=== PATIENT | male | born 1960 | race Caucasian/White ===

== ENCOUNTER 2016-10-10 15:28 | Emergency (ER) | payer BC, OTHER, SELFPAY ==
[2016-10-10 16:47] LABS: BASO % 0.2 % (0.0-1.0); EOS # 0.1 K/mm3 (0.0-0.50); EOS % 1.3 % (0.0-3.0); LARGE UNSTAINED CELL # 0.1 K/mm3 (0.0-0.4); LARGE UNSTAINED CELL % 1.5 % (0.0-4.0); LYMPH # 1.1 K/mm3 (1.5-4.5); LYMPH % 9.3 % (24.0-44.0); MEAN CORPUSCULAR HEMOGLOBIN 33.1 pg (27.0-33.0); MEAN CORPUSCULAR HGB CONC 35.3 g/dl (32.0-36.5); MEAN CORPUSCULAR VOLUME 93.8 fl (80.0-96.0); MONO # 0.9 K/mm3 (0.0-0.8); NEUTROPHILS # 7.8 K/mm3 (1.8-7.7); NEUTROPHILS % 78.7 % (36.0-66.0); PLATELET COUNT, AUTOMATED 218 k/mm3 (150-450); RED CELL DISTRIBUTION WIDTH 12.3 % (11.5-14.5); WHITE BLOOD COUNT 9.9 K/mm3 (4.0-10.0)
[2016-10-10 17:16] LABS: ERYTHROCYTE SEDIMENTATION RATE 3 mm/hr (0-20)
[2016-10-10 17:25] LABS: ALBUMIN 3.7 GM/DL (3.2-5.2); ALKALINE PHOSPHATASE 90 U/L (45-117); ALT/SGPT 21 U/L (12-78); ANION GAP 13 MEQ/L (8-16); AST/SGOT 21 U/L (15-37); BLOOD UREA NITROGEN 11 MG/DL (7-18); CALCIUM LEVEL 9.1 MG/DL (8.5-10.1); CARBON DIOXIDE LEVEL 23 MEQ/L (21-32); CHLORIDE LEVEL 94 MEQ/L (98-107); CREATININE FOR GFR 0.73 MG/DL (0.70-1.30); GLOMERULAR FILTRATION RATE > 60.0 (>56); GLUCOSE, FASTING 118 MG/DL (70-105); POTASSIUM SERUM 4.1 MEQ/L (3.5-5.1); SODIUM LEVEL 130 MEQ/L (136-145); TOTAL PROTEIN 7.4 GM/DL (6.4-8.2)
[2016-10-10] MEDS ORDERED: ISOVUE-370 76% 100ML VIAL (Q9967) As Ordered ONE (17:45)
[2016-10-10] MEDS ORDERED: MORPHINE 4 MG/ML 1ML SYRINGE As Ordered ONE (17:50)
--- NOTE | 2016-10-10 18:31 | REP ---
Clinical: Trauma. Technique: Axial contrast enhanced images from the thoracic inlet to the upper abdomen using 100 ml Isovue 370 intravenous contrast material with coronal and sagittal re-formations. Findings: Left anterolateral 4th through 9th rib fractures are identified with minimal displacement at the fracture sites of the 5th through 7th ribs. The left hemithorax is well-aerated and without consolidation/contusion, effusion or pneumothorax. Incidental note is made of a 6 mm noncalcified subpleural nodule in the left lower lobe (image 57). Right lower lobe infiltrate may represent acute pneumonia and/or areas of pulmonary parenchymal contusion. No right pleural effusion or pneumothorax. The tracheobronchial tree is patent. The mediastinum demonstrates normal heart/pericardium and thoracic aorta. No adenopathy. Thoracic vertebral bodies are intact. Impression: 1. Left anterolateral fourth through ninth rib fractures. 2. Right lower lobe infiltrate compatible with acute pneumonia versus areas of parenchymal contusion. 3. 6 mm noncalcified left lower lobe sub pleural nodule. Consider initial follow-up examination and 3-6 months. Signed by Leonid Hilton MD 10/10/2016 06:22 P
[2016-10-10] MEDS ORDERED: AZITHROMYCIN 250 MG TAB As Ordered ONE (19:13)
[2016-10-10] MEDS ORDERED: NORCO, ANEXSIA 5/325MG TABLET (HYDROcodone/ACETAMINOPHEN) As Ordered ONE (19:13)
[2016-10-10] MEDS ORDERED: cefTRIAXone SOD 1 GM VIAL (J0696) As Ordered ONE (19:14)
[2016-10-10] MEDS ORDERED: NORCO 5/325MG TABLET (BULK) As Ordered ONE (20:49)
--- NOTE | 2016-10-10 21:04 | EDDOCDS ---
Physician Documentation [facility] Name: Jamir Boyd Age: 56 yrs Sex: Male : 1960 Arrival Date: 10/10/2016 Time: 15:28 Bed I4 / M4 Private MD: NO PRIMARY PHYSICIAN, . Disposition: 10/10/16 20:41 Discharged to Home/Self Care. Impression: Multiple fractures of ribs, left side - 4-9, Unspecified bacterial pneumonia - RLL, Hypo-osmolality and hyponatremia - beer potomania. - Condition is Stable. - Discharge Instructions: Hyponatremia, Pneumonia, Adult. - Prescriptions for Amoxicillin 500 mg Oral Capsule - take 1 capsule by ORAL route every 8 hours for 10 days; 30 tablet. [place] 5- 325 mg Oral Tablet - take 1 tablet by ORAL route every 6 hours As needed MDD: 4 tabs; 16 tablet. Zithromax 250 mg Oral Tablet - take 1 tablet by ORAL route once daily start tomorrow; 4 tablet. - Medication Reconciliation, Local Pharmacy Hours, Work Release Form - 5 day form. - Follow up: Emergency Department; When: 1 - 2 days; Reason: Recheck today's complaints, Continuance of care. [facility]: [facility]; When: Call to arrange an appointment; Reason: Recheck today's complaints, To establish care. - Problem is new. - Symptoms have improved. Historical: - Allergies: no known allergies; - Home Meds: 1. aspirin 81 mg Oral tab 1 tab once daily (Last dose: 10/10/2016) - PMHx: none; - PSHx: metal plate rt ankle; Tonsillectomy; - Social history: Smoking status: Patient uses tobacco products, current every day smoker. No barriers to communication noted, The patient speaks fluent [place], Speaks appropriately for age. - Family history: Not pertinent. - : The pt / caregiver states he / she is not on anticoagulants. Home medication list is obtained from the patient. - Exposure Risk Screening:: None identified. Vital Signs: 10/10 15:30 BP 164 / 97; Pulse 108; Resp 18 S; Temp 97.5(O); Pulse Ox 94% on R/A; Weight 73.48 kg / gr2 162 lbs (M); Height 5 ft. 7 in. (170.18 cm) (M); Pain 8/10; 21:00 BP 156 / 98 LA (man/); Pulse 74; Resp 18; Temp 98; Pulse Ox 94% on R/A; Pain 6/10; ld5 15:30 Body Mass Index 25.37 (73.48 kg, 170.18 cm) gr2 MDM: 15:53 IV Saline Lock ordered. btw 15:54 CBC with Diff Ordered. EDMS 15:54 Complete Comphrensive Metabolic Ordered. EDMS 15:54 ESR Ordered. EDMS 15:54 CRP Ordered. EDMS 15:54 CT Chest With Contrast Ordered. EDMS 16:02 Pulse ox continuous ordered. btw 16:42 Financial registration complete. gjb 16:49 NOTHING BY MOUTH+DIET ordered. EDMS 16:56 [place] [place] Payment Agreement was scanned into [employer] and attached to record. gjb 17:18 CBC with Diff Reviewed. btw 17:18 ESR Reviewed. btw 17:30 Complete Comphrensive Metabolic Reviewed. btw 17:30 CRP Reviewed. btw 17:50 morphine 4 mg IVP every 30 minutes; Document pain score/vitals after each dose (Hold if btw SBP < 90mmHg) x2 ordered. 18:30 Urine Dip ordered. ar2 18:36 NS 0.9% 1000 ml IV at bolus once ordered. ar2 19:09 cefTRIAXone 1 grams IVPB once over 30 mins; dilute in 50mL of NS or D5W ordered. ar2 19:09 azithromycin 500 mg PO once ordered. ar2 19:09 HYDROcodone-acetaminophen 5 mg-325 mg 1 tabs PO once ordered. ar2 19:09 Call Respiratory ordered. ar2 19:13 Call Respiratory complete. kb5 20:44 HYDROcodone-acetaminophen 4 pack- 5 mg-325 mg 1 packets PO Per package directions; ar2 Dispense with patient. 1 po q4h prn for pain ordered. Point of Care Testing: Urine Dip: 18:50 pH: 6; ; Specific [place]: 1.000; Ketones: Moderate; Glucose: Negative; Protein: Trace; cjh Leukocytes: Negative; Nitrite: Negative ; Blood: Non Hemolyzed Trace; Bilirubin: Small (+) ; Urobilinogen: Normal Ranges: Administered Medications: 17:52 Drug: morphine 4 mg [morphine 4 mg/mL intravenous cartridge (1 mL)] Route: IVP; Site: srm right antecubital; 18:59 Drug: NS 0.9% 1000 ml Route: IV; Rate: bolus; Site: right antecubital; [facility] 20:48 Follow up: IV Status: Completed infusion; IV Intake: 1000ml ld5 19:25 Drug: cefTRIAXone 1 grams [ceftriaxone 1 gram solution for injection] Route: IVPB; ld5 Infused Over: 30 mins; Site: right antecubital; 20:48 Follow up: IV Status: Completed infusion; IV Intake: 50ml ld5 19:25 Drug: azithromycin 500 mg [azithromycin 250 mg tablet (2 tabs)] Route: PO; ld5 19:25 Drug: HYDROcodone-acetaminophen 1 tabs [hydrocodone 5 mg-acetaminophen 325 mg tablet (1 ld5 tabs)] Route: PO; 21:02 Follow up: Response: Confirmed pt not driving.; No significant change. ld5 21:02 Drug: HYDROcodone-acetaminophen 4 pack- 1 packets [hydrocodone 5 mg-acetaminophen 325 ld5 mg tablet (1 tabs)] {Co-Signature: [facility] (Tiffany Manzanares RN).} Route: PO; 21:02 Follow up: Response: Med's dispensed home ld5 Signatures: Dispatcher Med[employer] EDMS Alberta Sanders RN RN srm Joanne, Reji, COMMANDING OFFICER [employer] COMMANDING OFFICER [employer] kb5 Shaji Naik PA-C PALayo ar2 Ishaan Saenz PA PA btw Dickerson, Laura, RN RN ld5 Laxmi Muniz Jane RN cj Tiffany Manzanares RN [facility] The chart was reviewed and I authenticate all verbal orders and agree with the evaluation and treatment provided.Corrections: (The following items were deleted from the chart) 18:48 18:24 OSMOLALITY, SERUM+LAB ordered. EDMS EDMS Attachments: 16:56 [facility] Payment Agreement david MTDD
--- NOTE | 2016-10-10 21:05 | EDDOCDS ---
Nurse's Notes [facility] Name: Jamir Boyd Age: 56 yrs Sex: Male : 1960 Arrival Date: 10/10/2016 Time: 15:28 Bed I4 / M4 Private MD: NO PRIMARY PHYSICIAN, . Diagnosis: Multiple fractures of ribs, left side-4-9;Unspecified bacterial pneumonia-RLL;Hypo-osmolality and hyponatremia-beer potomania Presentation: 10/10 15:35 Presenting complaint: Patient states: Fell on Thursday. Doesn't remember the fall. ld5 Presents today with increasing left upper back pain. Adult Sepsis Screening: The patient does not have new or worsening altered mentation. Patient's respiratory rate is less than 22. Systolic blood pressure is greater than 100. Patient has a qSOFA score of 0- Negative Sepsis Screen. Suicide/Homicide risk assessment- the patient denies having any suicidal and/or homicidal ideations and does not present with any other emotional, behavioral or mental health complaints. Status: Patient is not a repair service dispatcher or dependent. Transition of care: patient was not received from another setting of care. 15:35 Acuity: PARKER Level 4 ld5 15:35 Method Of Arrival: Walkin/Carried/Asstd ld5 Triage Assessment: 15:37 General: Appears in no apparent distress. Pain: Location: left scapular area and left ld5 subscapular area Pain currently is 10 out of 10 on a pain scale. HIV screening NA for this visit Offered previously. Neurological: Level of Consciousness is awake, alert. Respiratory: Reports cough that is productive. Musculoskeletal: Reports "rattling" to left ribs. Historical: - Allergies: no known allergies; - Home Meds: 1. aspirin 81 mg Oral tab 1 tab once daily (Last dose: 10/10/2016) - PMHx: none; - PSHx: metal plate rt ankle; Tonsillectomy; - Social history: Smoking status: Patient uses tobacco products, current every day smoker. No barriers to communication noted, The patient speaks fluent Vietnamese, Speaks appropriately for age. - Family history: Not pertinent. - : The pt / caregiver states he / she is not on anticoagulants. Home medication list is obtained from the patient. - Exposure Risk Screening:: None identified. Screenin:26 Screening information is obtained from the patient. Fall risk: No risks identified. ld5 Assistance ADL's: requires no assistance with activities of daily living. Abuse/DV Screen: The patient / caregiver reports he/she is: not in a situation that causes fear, pain or injury. Nutritional screening: No deficits noted. Advance Directives: There is no active DNR order. home support is adequate. Assessment: 16:40 General: Appears in no apparent distress, Behavior is appropriate for age, cooperative. srm Neurological: Level of Consciousness is awake, alert, Oriented to person, place, time, Moves all extremities. Full function Speech is normal, Facial symmetry appears normal. Respiratory: No deficits noted. GI: No deficits noted. 17:08 General: Appears in no apparent distress, comfortable, Behavior is appropriate for age, h cooperative, resting quietly on stretcher, no new problems or complaints, requesting a drink of water. Reviewed and explained NPO after discussing with provider. 17:57 General: Appears in no apparent distress, Behavior is appropriate for age, cooperative. srm Respiratory: Airway is patent Respiratory effort is even, unlabored, Breath sounds with crackles expiratory in left posterior lower lobe, right posterior middle lobe and right posterior lower lobe Breath sounds are diminished in right posterior middle lobe and right posterior lower lobe. Derm: No deficits noted. 19:25 General: Pt sitting up in bed. No apparent distress. Pt medicated per orders. Will ld5 continue to monitor. 20:04 General: IV medications complete, fluids continue infusing without difficulty, awaiting [facility] discharge. 20:19 General: Pt laying quietly in bed. No apparent distress. Bolus infusing. Will continue ld5 to monitor. 21:00 General: Pt reports increased pain when going from laying to sitting. Medications and ld5 incentive spirometer importance explained to pt and family member. Pain: Pain currently is 6 out of 10 on a pain scale. Neurological: Level of Consciousness is awake, alert. Respiratory: Airway is patent Respiratory effort is even, unlabored. Vital Signs: 15:30 BP 164 / 97; Pulse 108; Resp 18 S; Temp 97.5(O); Pulse Ox 94% on R/A; Weight 73.48 kg gr2 (M); Height 5 ft. 7 in. (170.18 cm) (M); Pain 8/10; 21:00 BP 156 / 98 LA (man/); Pulse 74; Resp 18; Temp 98; Pulse Ox 94% on R/A; Pain 6/10; ld5 15:30 Body Mass Index 25.37 (73.48 kg, 170.18 cm) gr2 Vitals: 15:30 Log In Time: October 10, 2016 at 15:30. gr2 ED Course: 15:29 Patient visited by Andrey Sanchez. gr2 15:29 Patient moved to Waiting gr2 15:30 NO PRIMARY PHYSICIAN, . is Private Physician. gr2 15:32 Patient visited by Andrey Sanchez. gr2 15:32 Patient moved to Pre RCE gr2 15:37 Triage Initiated ld5 15:39 Patient visited by Ava Perla RN. ld5 15:39 Ishaan Saenz PA is PHCP. btw 15:39 Mary Alston MD is Attending Physician. btw 15:39 Patient visited by Ishaan Saenz PA. btw 15:39 Patient moved to Triage 1 ld5 15:54 Patient moved to I6 / 28 jjr 15:55 Patient moved to I4 / M4 btw 16:10 Patient visited by Morteza Cummings PCA. jlf 16:15 Patient visited by Morteza Cummings PCA. jlf 16:40 The patient / caregiver is instructed regarding the plan of care and ED course. srm Accompanied by Significant Other, Patient has correct armband on for positive identification. Placed in gown. Bed in low position. 16:40 CRP Sent. srm 16:40 ESR Sent. srm 16:40 Complete Comphrensive Metabolic Sent. srm 16:40 CBC with Diff Sent. srm 16:40 Inserted saline lock: 20 gauge in right antecubital area and blood collected. srm 16:41 Patient visited by Alberta Sanders RN. srm 16:56 [place] [place] Agreement was scanned into [employer] and attached to record. gjb 17:37 Patient visited by Morteza Cummings PCA. jlf 17:58 Patient visited by Alberta Sanders RN. srm 18:02 PHCP role handed off by Ishaan Saenz PA ar2 18:02 Shaji Naik PA-C is PHCP. ar2 18:33 Patient visited by Morteza Cummings PCA. jlf 19:08 CT Chest With Contrast Returned. EDMS 19:26 No procedures done that require assistance. ld5 19:27 Patient visited by Ava Perla,BALDOMERO. ld5 20:10 Patient visited by Reji Rubio PCA. kb5 20:19 Patient visited by Ava Perla,BALDOMERO. ld5 20:40 [facility] is Referral Physician. ar2 21:00 Discontinued lock intact, bleeding controlled, pressure dressing applied, No ld5 redness/swelling at site. 21:03 Patient visited by Ava Perla RN. ld5 Administered Medications: 17:52 Drug: morphine 4 mg [morphine 4 mg/mL intravenous cartridge (1 mL)] Route: IVP; Site: srm right antecubital; 18:59 Drug: NS 0.9% 1000 ml Route: IV; Rate: bolus; Site: right antecubital; [facility] 20:48 Follow up: IV Status: Completed infusion; IV Intake: 1000ml ld5 19:25 Drug: cefTRIAXone 1 grams [ceftriaxone 1 gram solution for injection] Route: IVPB; ld5 Infused Over: 30 mins; Site: right antecubital; 20:48 Follow up: IV Status: Completed infusion; IV Intake: 50ml ld5 19:25 Drug: azithromycin 500 mg [azithromycin 250 mg tablet (2 tabs)] Route: PO; ld5 19:25 Drug: HYDROcodone-acetaminophen 1 tabs [hydrocodone 5 mg-acetaminophen 325 mg tablet (1 ld5 tabs)] Route: PO; 21:02 Follow up: Response: Confirmed pt not driving.; No significant change. ld5 21:02 Drug: HYDROcodone-acetaminophen 4 pack- 1 packets [hydrocodone 5 mg-acetaminophen 325 ld5 mg tablet (1 tabs)] {Co-Signature: [facility] (Tiffany Manzanares RN).} Route: PO; 21:02 Follow up: Response: Med's dispensed home ld5 Point of Care Testing: Urine Dip: 18:50 pH: 6; ; Specific [place]: 1.000; Ketones: Moderate; Glucose: Negative; Protein: Trace; [facility] Leukocytes: Negative; Nitrite: Negative ; Blood: Non Hemolyzed Trace; Bilirubin: Small (+) ; Urobilinogen: Normal Ranges: Intake: 20:48 IV: 50.00ml; Total: 50.00ml. ld5 20:48 IV: 1000.00ml; Total: 1050.00ml. ld5 RT: 19:27 Incentive Spirometry performed: 10 inspirations. Volume of inspiration: 1500 mls. jc3 Order Results: Lab Order: CBC with Diff; SPEC'M 10/10/16 16:38 Test: WHITE BLOOD COUNT; Value: 9.9; Range: 4.0-10.0; Units: K/mm3; Status: F Test: RED BLOOD COUNT; Value: 5.77; Range: 4.30-6.10; Units: M/mm3; Status: F Test: HEMOGLOBIN; Value: 19.1; Range: 14.0-18.0; Abnormal: Above high normal; Units: g/dl; Status: F Test: HEMATOCRIT; Value: 54.1; Range: 42.0-52.0; Abnormal: Above high normal; Units: %; Status: F Test: MEAN CORPUSCULAR VOLUME; Value: 93.8; Range: 80.0-96.0; Units: fl; Status: F Test: MEAN CORPUSCULAR HEMOGLOBIN; Value: 33.1; Range: 27.0-33.0; Abnormal: Above high normal; Units: pg; Status: F Test: MEAN CORPUSCULAR HGB CONC; Value: 35.3; Range: 32.0-36.5; Units: g/dl; Status: F Test: RED CELL DISTRIBUTION WIDTH; Value: 12.3; Range: 11.5-14.5; Units: %; Status: F Test: PLATELET COUNT, AUTOMATED; Value: 218; Range: 150-450; Units: k/mm3; Status: F Test: NEUTROPHILS %; Value: 78.7; Range: 36.0-66.0; Abnormal: Above high normal; Units: %; Status: F Test: LYMPH %; Value: 9.3; Range: 24.0-44.0; Abnormal: Below low normal; Units: %; Status: F Test: MONO %; Value: 9.0; Range: 0.0-5.0; Abnormal: Above high normal; Units: %; Status: F Test: EOS %; Value: 1.3; Range: 0.0-3.0; Units: %; Status: F Test: BASO %; Value: 0.2; Range: 0.0-1.0; Units: %; Status: F Test: LARGE UNSTAINED CELL %; Value: 1.5; Range: 0.0-4.0; Units: %; Status: F Test: NEUTROPHILS #; Value: 7.8; Range: 1.8-7.7; Abnormal: Above high normal; Units: K/mm3; Status: F Test: LYMPH #; Value: 1.1; Range: 1.5-4.5; Abnormal: Below low normal; Units: K/mm3; Status: F Test: MONO #; Value: 0.9; Range: 0.0-0.8; Abnormal: Above high normal; Units: K/mm3; Status: F Test: EOS #; Value: 0.1; Range: 0.0-0.50; Units: K/mm3; Status: F Test: BASO #; Value: 0.0; Range: 0.0-0.2; Units: K/mm3; Status: F Test: LARGE UNSTAINED CELL #; Value: 0.1; Range: 0.0-0.4; Units: K/mm3; Status: F Lab Order: Complete Comphrensive Metabolic; SPEC'M 10/10/16 16:38 Test: GLUCOSE, FASTING; Value: 118; Range: 70-105; Abnormal: Above high normal; Units: MG/DL; Status: F Test: BLOOD UREA NITROGEN; Value: 11; Range: 7-18; Units: MG/DL; Status: F Test: CREATININE FOR GFR; Value: 0.73; Range: 0.70-1.30; Units: MG/DL; Status: F Test: GLOMERULAR FILTRATION RATE; Value: > 60.0; Range: >56; Status: F Test: SODIUM LEVEL; Value: 130; Range: 136-145; Abnormal: Below low normal; Units: MEQ/L; Status: F Test: POTASSIUM SERUM; Value: 4.1; Range: 3.5-5.1; Units: MEQ/L; Status: F Test: CHLORIDE LEVEL; Value: 94; Range: 98-107; Abnormal: Below low normal; Units: MEQ/L; Status: F Test: CARBON DIOXIDE LEVEL; Value: 23; Range: 21-32; Units: MEQ/L; Status: F Test: ANION GAP; Value: 13; Range: 8-16; Units: MEQ/L; Status: F Test: CALCIUM LEVEL; Value: 9.1; Range: 8.5-10.1; Units: MG/DL; Status: F Test: AST/SGOT; Value: 21; Range: 15-37; Units: U/L; Status: F Test: ALT/SGPT; Value: 21; Range: 12-78; Units: U/L; Status: F Test: ALKALINE PHOSPHATASE; Value: 90; Range: 45-117; Units: U/L; Status: F Test: BILIRUBIN,TOTAL; Value: 1.0; Range: 0.2-1.0; Units: MG/DL; Status: F Test: TOTAL PROTEIN; Value: 7.4; Range: 6.4-8.2; Units: GM/DL; Status: F Test: ALBUMIN; Value: 3.7; Range: 3.2-5.2; Units: GM/DL; Status: F Test: ALBUMIN/GLOBULIN RATIO; Value: 1.00; Range: 1.00-1.93; Status: F Test Note: ; Units are mL/min/1.73 m2 Chronic Kidney Disease Staging per NKF: Stage I & II GFR >=60 Normal to Mildly Decreased Stage III GFR 30-59 Moderately Decreased Stage IV GFR 15-29 Severely Decreased Stage V GFR <15 Very Little GFR Left ESRD GFR <15 on TIMBER CRUISER Lab Order: ESR; SPEC'M 10/10/16 16:38 Test: ERYTHROCYTE SEDIMENTATION RATE; Value: 3; Range: 0-20; Units: mm/hr; Status: F Lab Order: CRP; SPEC'M 10/10/16 16:38 Test: C REACTIVE PROTEIN QUANTITATIV; Value: 10.10; Range: 0.00-0.30; Abnormal: Above high normal; Units: MG/DL; Status: F Radiology Order: CT Chest With Contrast Test: CT Chest With Contrast REASON FOR EXAMINATION: Trauma; Clinical: Trauma.; ; Technique: Axial contrast enhanced images from the thoracic inlet to the upper; abdomen using 100 ml Isovue 370 intravenous contrast material with coronal and; sagittal re-formations.; ; Findings:; Left anterolateral 4th through 9th rib fractures are identified with minimal; displacement at the fracture sites of the 5th through 7th ribs. The left; hemithorax is well-aerated and without consolidation/contusion, effusion or; pneumothorax. Incidental note is made of a 6 mm noncalcified subpleural nodule; in the left lower lobe (image 57). Right lower lobe infiltrate may represent; acute pneumonia and/or areas of pulmonary parenchymal contusion. No right; pleural effusion or pneumothorax. The tracheobronchial tree is patent. The; mediastinum demonstrates normal heart/pericardium and thoracic aorta. No; adenopathy. Thoracic vertebral bodies are intact.; ; Impression:; 1. Left anterolateral fourth through ninth rib fractures.; 2. Right lower lobe infiltrate compatible with acute pneumonia versus areas of; parenchymal contusion.; 3. 6 mm noncalcified left lower lobe sub pleural nodule. Consider initial; follow-up examination and 3-6 months.; ; ; Signed by; Leonid Hilton MD 10/10/2016 06:22 P; Outcome: 19:26 CT Study completed. ld5 20:41 Discharge ordered by Provider. ar2 21:00 Discharge Assessment: Patient awake, alert and oriented x 3. No cognitive and/or ld5 functional deficits noted. Patient verbalized understanding of disposition instructions. patient administered narcotics - yes. Pt provided with safe discharge. The following High Risk Discharge criteria are identified: None. Discharged to home ambulatory, with significant other. Condition: stable. Discharge instructions given to patient, significant other, Instructed on discharge instructions, follow up and referral plans. medication usage, no driving heavy equipment, incentive spirometer Demonstrated understanding of instructions, medications, Pt was receptive of discharge instructions/ teaching. Prescriptions given X 3, Work note provided to patient. Property :Personal belongings accompany Pt. 21:03 Patient left the ED. ld5 Signatures: Dispatcher [employer] EDMS Alberta Sanders RN RN srm Bancroft, Kristopher, SUPERVISOR [employer]LEMENTS SUPERVISOR [employer] kb5 Yadira Sanchez RN RN jjr Colello, Joseph jc3 Shaji Naik PA-C PALayo ar2 Ishaan Saenz PA PA btw Dickerson, Laura, RN RN ld5 Tiffany Manzanares RN RN [facility] Andrey Sanchez gr2 Morteza Cummings, SUPERVISOR [employer] SUPERVISOR [employer] jlf Laxmi Muniz RN [facility] MTDD
--- NOTE | 2016-10-12 22:04 | EDDOCDS ---
Nurse's Notes [facility] Name: Jamir Boyd Age: 56 yrs Sex: Male : 1960 Arrival Date: 10/10/2016 Time: 15:28 Bed I4 / M4 Private MD: NO PRIMARY PHYSICIAN, . Diagnosis: Multiple fractures of ribs, left side-4-9;Unspecified bacterial pneumonia-RLL;Hypo-osmolality and hyponatremia-beer potomania Presentation: 10/10 15:35 Presenting complaint: Patient states: Fell on Thursday. Doesn't remember the fall. ld5 Presents today with increasing left upper back pain. Adult Sepsis Screening: The patient does not have new or worsening altered mentation. Patient's respiratory rate is less than 22. Systolic blood pressure is greater than 100. Patient has a qSOFA score of 0- Negative Sepsis Screen. Suicide/Homicide risk assessment- the patient denies having any suicidal and/or homicidal ideations and does not present with any other emotional, behavioral or mental health complaints. Status: Patient is not a disability services coordinator or dependent. Transition of care: patient was not received from another setting of care. 15:35 Acuity: PARKER Level 4 ld5 15:35 Method Of Arrival: Walkin/Carried/Asstd ld5 Triage Assessment: 15:37 General: Appears in no apparent distress. Pain: Location: left scapular area and left ld5 subscapular area Pain currently is 10 out of 10 on a pain scale. HIV screening NA for this visit Offered previously. Neurological: Level of Consciousness is awake, alert. Respiratory: Reports cough that is productive. Musculoskeletal: Reports "rattling" to left ribs. Historical: - Allergies: no known allergies; - Home Meds: 1. aspirin 81 mg Oral tab 1 tab once daily (Last dose: 10/10/2016) - PMHx: none; - PSHx: metal plate rt ankle; Tonsillectomy; - Social history: Smoking status: Patient uses tobacco products, current every day smoker. No barriers to communication noted, The patient speaks fluent Belarusian, Speaks appropriately for age. - Family history: Not pertinent. - : The pt / caregiver states he / she is not on anticoagulants. Home medication list is obtained from the patient. - Exposure Risk Screening:: None identified. Screenin:26 Screening information is obtained from the patient. Fall risk: No risks identified. ld5 Assistance ADL's: requires no assistance with activities of daily living. Abuse/DV Screen: The patient / caregiver reports he/she is: not in a situation that causes fear, pain or injury. Nutritional screening: No deficits noted. Advance Directives: There is no active DNR order. home support is adequate. Assessment: 16:40 General: Appears in no apparent distress, Behavior is appropriate for age, cooperative. srm Neurological: Level of Consciousness is awake, alert, Oriented to person, place, time, Moves all extremities. Full function Speech is normal, Facial symmetry appears normal. Respiratory: No deficits noted. GI: No deficits noted. 17:08 General: Appears in no apparent distress, comfortable, Behavior is appropriate for age, h cooperative, resting quietly on stretcher, no new problems or complaints, requesting a drink of water. Reviewed and explained NPO after discussing with provider. 17:57 General: Appears in no apparent distress, Behavior is appropriate for age, cooperative. srm Respiratory: Airway is patent Respiratory effort is even, unlabored, Breath sounds with crackles expiratory in left posterior lower lobe, right posterior middle lobe and right posterior lower lobe Breath sounds are diminished in right posterior middle lobe and right posterior lower lobe. Derm: No deficits noted. 19:25 General: Pt sitting up in bed. No apparent distress. Pt medicated per orders. Will ld5 continue to monitor. 20:04 General: IV medications complete, fluids continue infusing without difficulty, awaiting [facility] discharge. 20:19 General: Pt laying quietly in bed. No apparent distress. Bolus infusing. Will continue ld5 to monitor. 21:00 General: Pt reports increased pain when going from laying to sitting. Medications and ld5 incentive spirometer importance explained to pt and family member. Pain: Pain currently is 6 out of 10 on a pain scale. Neurological: Level of Consciousness is awake, alert. Respiratory: Airway is patent Respiratory effort is even, unlabored. Vital Signs: 15:30 BP 164 / 97; Pulse 108; Resp 18 S; Temp 97.5(O); Pulse Ox 94% on R/A; Weight 73.48 kg gr2 (M); Height 5 ft. 7 in. (170.18 cm) (M); Pain 8/10; 21:00 BP 156 / 98 LA (man/); Pulse 74; Resp 18; Temp 98; Pulse Ox 94% on R/A; Pain 6/10; ld5 15:30 Body Mass Index 25.37 (73.48 kg, 170.18 cm) gr2 Vitals: 15:30 Log In Time: October 10, 2016 at 15:30. gr2 ED Course: 15:29 Patient visited by Andrey Sanchez. gr2 15:29 Patient moved to Waiting gr2 15:30 NO PRIMARY PHYSICIAN, . is Private Physician. gr2 15:32 Patient visited by Andrey Sanchez. gr2 15:32 Patient moved to Pre RCE gr2 15:37 Triage Initiated ld5 15:39 Patient visited by Ava Perla RN. ld5 15:39 Ishaan Saenz PA is PHCP. btw 15:39 Mary Alston MD is Attending Physician. btw 15:39 Patient visited by Ishaan Saenz PA. btw 15:39 Patient moved to Triage 1 ld5 15:54 Patient moved to I6 / 28 jjr 15:55 Patient moved to I4 / M4 btw 16:10 Patient visited by Morteza Cummings PCA. jlf 16:15 Patient visited by Morteza Cummings PCA. jlf 16:40 The patient / caregiver is instructed regarding the plan of care and ED course. srm Accompanied by Significant Other, Patient has correct armband on for positive identification. Placed in gown. Bed in low position. 16:40 CRP Sent. srm 16:40 ESR Sent. srm 16:40 Complete Comphrensive Metabolic Sent. srm 16:40 CBC with Diff Sent. srm 16:40 Inserted saline lock: 20 gauge in right antecubital area and blood collected. srm 16:41 Patient visited by Alberta Sanders RN. srm 16:56 [place] Payment Agreement was scanned into [employer] and attached to record. gjb 17:37 Patient visited by Morteza Cummings PCA. jlf 17:58 Patient visited by Alberta Sanders RN. srm 18:02 PHCP role handed off by Ishaan Saenz PA ar2 18:02 Shaji Naik PA-C is PHCP. ar2 18:33 Patient visited by Morteza Cummings PCA. jlf 19:08 CT Chest With Contrast Returned. EDMS 19:26 No procedures done that require assistance. ld5 19:27 Patient visited by Ava Perla,BALDOMERO. ld5 20:10 Patient visited by Reji Rubio PCA. kb5 20:19 Patient visited by Ava Perla,BALDOMERO. ld5 20:40 [facility] is Referral Physician. ar2 21:00 Discontinued lock intact, bleeding controlled, pressure dressing applied, No ld5 redness/swelling at site. 21:03 Patient visited by Ava Perla RN. ld5 10/11 09:56 T-Sheet-- Draft Copy was scanned into [employer] and attached to record. gb 09:56 Radiology Report was scanned into [employer] and attached to record. gb Administered Medications: 10/10 17:52 Drug: morphine 4 mg [morphine 4 mg/mL intravenous cartridge (1 mL)] Route: IVP; Site: srm right antecubital; 18:59 Drug: NS 0.9% 1000 ml Route: IV; Rate: bolus; Site: right antecubital; [facility] 20:48 Follow up: IV Status: Completed infusion; IV Intake: 1000ml ld5 19:25 Drug: cefTRIAXone 1 grams [ceftriaxone 1 gram solution for injection] Route: IVPB; ld5 Infused Over: 30 mins; Site: right antecubital; 20:48 Follow up: IV Status: Completed infusion; IV Intake: 50ml ld5 19:25 Drug: azithromycin 500 mg [azithromycin 250 mg tablet (2 tabs)] Route: PO; ld5 19:25 Drug: HYDROcodone-acetaminophen 1 tabs [hydrocodone 5 mg-acetaminophen 325 mg tablet (1 ld5 tabs)] Route: PO; 21:02 Follow up: Response: Confirmed pt not driving.; No significant change. ld5 21:02 Drug: HYDROcodone-acetaminophen 4 pack- 1 packets [hydrocodone 5 mg-acetaminophen 325 ld5 mg tablet (1 tabs)] {Co-Signature: alisa (Tiffany Manzanares RN).} Route: PO; 21:02 Follow up: Response: Med's dispensed home ld5 Point of Care Testing: Urine Dip: 18:50 pH: 6; ; Specific [place]: 1.000; Ketones: Moderate; Glucose: Negative; Protein: Trace; [facility] Leukocytes: Negative; Nitrite: Negative ; Blood: Non Hemolyzed Trace; Bilirubin: Small (+) ; Urobilinogen: Normal Ranges: Intake: 20:48 IV: 50.00ml; Total: 50.00ml. ld5 20:48 IV: 1000.00ml; Total: 1050.00ml. ld5 RT: 19:27 Incentive Spirometry performed: 10 inspirations. Volume of inspiration: 1500 mls. jc3 Order Results: Lab Order: CBC with Diff; SPEC'M 10/10/16 16:38 Test: WHITE BLOOD COUNT; Value: 9.9; Range: 4.0-10.0; Units: K/mm3; Status: F Test: RED BLOOD COUNT; Value: 5.77; Range: 4.30-6.10; Units: M/mm3; Status: F Test: HEMOGLOBIN; Value: 19.1; Range: 14.0-18.0; Abnormal: Above high normal; Units: g/dl; Status: F Test: HEMATOCRIT; Value: 54.1; Range: 42.0-52.0; Abnormal: Above high normal; Units: %; Status: F Test: MEAN CORPUSCULAR VOLUME; Value: 93.8; Range: 80.0-96.0; Units: fl; Status: F Test: MEAN CORPUSCULAR HEMOGLOBIN; Value: 33.1; Range: 27.0-33.0; Abnormal: Above high normal; Units: pg; Status: F Test: MEAN CORPUSCULAR HGB CONC; Value: 35.3; Range: 32.0-36.5; Units: g/dl; Status: F Test: RED CELL DISTRIBUTION WIDTH; Value: 12.3; Range: 11.5-14.5; Units: %; Status: F Test: PLATELET COUNT, AUTOMATED; Value: 218; Range: 150-450; Units: k/mm3; Status: F Test: NEUTROPHILS %; Value: 78.7; Range: 36.0-66.0; Abnormal: Above high normal; Units: %; Status: F Test: LYMPH %; Value: 9.3; Range: 24.0-44.0; Abnormal: Below low normal; Units: %; Status: F Test: MONO %; Value: 9.0; Range: 0.0-5.0; Abnormal: Above high normal; Units: %; Status: F Test: EOS %; Value: 1.3; Range: 0.0-3.0; Units: %; Status: F Test: BASO %; Value: 0.2; Range: 0.0-1.0; Units: %; Status: F Test: LARGE UNSTAINED CELL %; Value: 1.5; Range: 0.0-4.0; Units: %; Status: F Test: NEUTROPHILS #; Value: 7.8; Range: 1.8-7.7; Abnormal: Above high normal; Units: K/mm3; Status: F Test: LYMPH #; Value: 1.1; Range: 1.5-4.5; Abnormal: Below low normal; Units: K/mm3; Status: F Test: MONO #; Value: 0.9; Range: 0.0-0.8; Abnormal: Above high normal; Units: K/mm3; Status: F Test: EOS #; Value: 0.1; Range: 0.0-0.50; Units: K/mm3; Status: F Test: BASO #; Value: 0.0; Range: 0.0-0.2; Units: K/mm3; Status: F Test: LARGE UNSTAINED CELL #; Value: 0.1; Range: 0.0-0.4; Units: K/mm3; Status: F Lab Order: Complete Comphrensive Metabolic; SPEC'M 10/10/16 16:38 Test: GLUCOSE, FASTING; Value: 118; Range: 70-105; Abnormal: Above high normal; Units: MG/DL; Status: F Test: BLOOD UREA NITROGEN; Value: 11; Range: 7-18; Units: MG/DL; Status: F Test: CREATININE FOR GFR; Value: 0.73; Range: 0.70-1.30; Units: MG/DL; Status: F Test: GLOMERULAR FILTRATION RATE; Value: > 60.0; Range: >56; Status: F Test: SODIUM LEVEL; Value: 130; Range: 136-145; Abnormal: Below low normal; Units: MEQ/L; Status: F Test: POTASSIUM SERUM; Value: 4.1; Range: 3.5-5.1; Units: MEQ/L; Status: F Test: CHLORIDE LEVEL; Value: 94; Range: 98-107; Abnormal: Below low normal; Units: MEQ/L; Status: F Test: CARBON DIOXIDE LEVEL; Value: 23; Range: 21-32; Units: MEQ/L; Status: F Test: ANION GAP; Value: 13; Range: 8-16; Units: MEQ/L; Status: F Test: CALCIUM LEVEL; Value: 9.1; Range: 8.5-10.1; Units: MG/DL; Status: F Test: AST/SGOT; Value: 21; Range: 15-37; Units: U/L; Status: F Test: ALT/SGPT; Value: 21; Range: 12-78; Units: U/L; Status: F Test: ALKALINE PHOSPHATASE; Value: 90; Range: 45-117; Units: U/L; Status: F Test: BILIRUBIN,TOTAL; Value: 1.0; Range: 0.2-1.0; Units: MG/DL; Status: F Test: TOTAL PROTEIN; Value: 7.4; Range: 6.4-8.2; Units: GM/DL; Status: F Test: ALBUMIN; Value: 3.7; Range: 3.2-5.2; Units: GM/DL; Status: F Test: ALBUMIN/GLOBULIN RATIO; Value: 1.00; Range: 1.00-1.93; Status: F Test Note: ; Units are mL/min/1.73 m2 Chronic Kidney Disease Staging per NKF: Stage I & II GFR >=60 Normal to Mildly Decreased Stage III GFR 30-59 Moderately Decreased Stage IV GFR 15-29 Severely Decreased Stage V GFR <15 Very Little GFR Left ESRD GFR <15 on [employer] Lab Order: ESR; SPEC'M 10/10/16 16:38 Test: ERYTHROCYTE SEDIMENTATION RATE; Value: 3; Range: 0-20; Units: mm/hr; Status: F Lab Order: CRP; SPEC'M 10/10/16 16:38 Test: C REACTIVE PROTEIN QUANTITATIV; Value: 10.10; Range: 0.00-0.30; Abnormal: Above high normal; Units: MG/DL; Status: F Radiology Order: CT Chest With Contrast Test: CT Chest With Contrast REASON FOR EXAMINATION: Trauma; Clinical: Trauma.; ; Technique: Axial contrast enhanced images from the thoracic inlet to the upper; abdomen using 100 ml Isovue 370 intravenous contrast material with coronal and; sagittal re-formations.; ; Findings:; Left anterolateral 4th through 9th rib fractures are identified with minimal; displacement at the fracture sites of the 5th through 7th ribs. The left; hemithorax is well-aerated and without consolidation/contusion, effusion or; pneumothorax. Incidental note is made of a 6 mm noncalcified subpleural nodule; in the left lower lobe (image 57). Right lower lobe infiltrate may represent; acute pneumonia and/or areas of pulmonary parenchymal contusion. No right; pleural effusion or pneumothorax. The tracheobronchial tree is patent. The; mediastinum demonstrates normal heart/pericardium and thoracic aorta. No; adenopathy. Thoracic vertebral bodies are intact.; ; Impression:; 1. Left anterolateral fourth through ninth rib fractures.; 2. Right lower lobe infiltrate compatible with acute pneumonia versus areas of; parenchymal contusion.; 3. 6 mm noncalcified left lower lobe sub pleural nodule. Consider initial; follow-up examination and 3-6 months.; ; ; Signed by; Leonid Hilton MD 10/10/2016 06:22 P; Outcome: 19:26 CT Study completed. ld5 20:41 Discharge ordered by Provider. ar2 21:00 Discharge Assessment: Patient awake, alert and oriented x 3. No cognitive and/or ld5 functional deficits noted. Patient verbalized understanding of disposition instructions. patient administered narcotics - yes. Pt provided with safe discharge. The following High Risk Discharge criteria are identified: None. Discharged to home ambulatory, with significant other. Condition: stable. Discharge instructions given to patient, significant other, Instructed on discharge instructions, follow up and referral plans. medication usage, no driving heavy equipment, incentive spirometer Demonstrated understanding of instructions, medications, Pt was receptive of discharge instructions/ teaching. Prescriptions given X 3, Work note provided to patient. Property :Personal belongings accompany Pt. 21:03 Patient left the ED. ld5 Signatures: Dispatcher [employer] EDMS Alberta Sanders RN RN srm Barnhardt, Gloria, Reg Reg gb Reji Rubio, SHAISTA SUPERCALENDER OPERATOR HELPER kb5 Yadira Sanchez RN RN jjr Colello, Joseph jc3 Shaji Naik PA-C PA-C ar2 Ishaan Saenz PA PA btw Dickerson, Laura,RN RN ld5 Tiffany Manzanares,RN RN cjh Andrey Sanchez gr2 Morteza Cummings, SUPERCALENDER OPERATOR HELPER SUPERCALENDER OPERATOR HELPER Laxmi Crockett RN cj Chart Complete MTDD
--- NOTE | 2016-10-12 22:04 | EDDOCDS ---
Physician Documentation [facility] Name: Jamir Boyd Age: 56 yrs Sex: Male : 1960 Arrival Date: 10/10/2016 Time: 15:28 Bed I4 / M4 Private MD: NO PRIMARY PHYSICIAN, . Disposition: 10/10/16 20:41 Discharged to Home/Self Care. Impression: Multiple fractures of ribs, left side - 4-9, Unspecified bacterial pneumonia - RLL, Hypo-osmolality and hyponatremia - beer potomania. - Condition is Stable. - Discharge Instructions: Hyponatremia, Pneumonia, Adult. - Prescriptions for Amoxicillin 500 mg Oral Capsule - take 1 capsule by ORAL route every 8 hours for 10 days; 30 tablet. [place] 5- 325 mg Oral Tablet - take 1 tablet by ORAL route every 6 hours As needed MDD: 4 tabs; 16 tablet. Zithromax 250 mg Oral Tablet - take 1 tablet by ORAL route once daily start tomorrow; 4 tablet. - Medication Reconciliation, Local Pharmacy Hours, Work Release Form - 5 day form. - Follow up: Emergency Department; When: 1 - 2 days; Reason: Recheck today's complaints, Continuance of care. Follow up: [facility]; When: Call to arrange an appointment; Reason: Recheck today's complaints, To establish care. - Problem is new. - Symptoms have improved. Historical: - Allergies: no known allergies; - Home Meds: 1. aspirin 81 mg Oral tab 1 tab once daily (Last dose: 10/10/2016) - PMHx: none; - PSHx: metal plate rt ankle; Tonsillectomy; - Social history: Smoking status: Patient uses tobacco products, current every day smoker. No barriers to communication noted, The patient speaks fluent Occitan, Speaks appropriately for age. - Family history: Not pertinent. - : The pt / caregiver states he / she is not on anticoagulants. Home medication list is obtained from the patient. - Exposure Risk Screening:: None identified. Vital Signs: 10/10 15:30 BP 164 / 97; Pulse 108; Resp 18 S; Temp 97.5(O); Pulse Ox 94% on R/A; Weight 73.48 kg / gr2 162 lbs (M); Height 5 ft. 7 in. (170.18 cm) (M); Pain 8/10; 21:00 BP 156 / 98 LA (man/); Pulse 74; Resp 18; Temp 98; Pulse Ox 94% on R/A; Pain 6/10; ld5 15:30 Body Mass Index 25.37 (73.48 kg, 170.18 cm) gr2 MDM: 15:53 IV Saline Lock ordered. btw 15:54 CBC with Diff Ordered. EDMS 15:54 Complete Comphrensive Metabolic Ordered. EDMS 15:54 ESR Ordered. EDMS 15:54 CRP Ordered. EDMS 15:54 CT Chest With Contrast Ordered. EDMS 16:02 Pulse ox continuous ordered. btw 16:42 Financial registration complete. gjb 16:49 NOTHING BY MOUTH+DIET ordered. EDMS 16:56 [facility] Payment Agreement was scanned into [employer] and attached to record. gjb 17:18 CBC with Diff Reviewed. btw 17:18 ESR Reviewed. btw 17:30 Complete Comphrensive Metabolic Reviewed. btw 17:30 CRP Reviewed. btw 17:50 morphine 4 mg IVP every 30 minutes; Document pain score/vitals after each dose (Hold if btw SBP < 90mmHg) x2 ordered. 18:30 Urine Dip ordered. ar2 18:36 NS 0.9% 1000 ml IV at bolus once ordered. ar2 19:09 cefTRIAXone 1 grams IVPB once over 30 mins; dilute in 50mL of NS or D5W ordered. ar2 19:09 azithromycin 500 mg PO once ordered. ar2 19:09 HYDROcodone-acetaminophen 5 mg-325 mg 1 tabs PO once ordered. ar2 19:09 Call Respiratory ordered. ar2 19:13 Call Respiratory complete. kb5 20:44 HYDROcodone-acetaminophen 4 pack- 5 mg-325 mg 1 packets PO Per package directions; ar2 Dispense with patient. 1 po q4h prn for pain ordered. 10/11 09:56 T-Sheet-- Draft Copy was scanned into [employer] and attached to record. 09:56 Radiology Report was scanned into [employer] and attached to record. Point of Care Testing: Urine Dip: 10/10 18:50 pH: 6; ; Specific [place]: 1.000; Ketones: Moderate; Glucose: Negative; Protein: Trace; cjh Leukocytes: Negative; Nitrite: Negative ; Blood: Non Hemolyzed Trace; Bilirubin: Small (+) ; Urobilinogen: Normal Ranges: Administered Medications: 17:52 Drug: morphine 4 mg [morphine 4 mg/mL intravenous cartridge (1 mL)] Route: IVP; Site: [facility] right antecubital; 18:59 Drug: NS 0.9% 1000 ml Route: IV; Rate: bolus; Site: right antecubital; [facility] 20:48 Follow up: IV Status: Completed infusion; IV Intake: 1000ml ld5 19:25 Drug: cefTRIAXone 1 grams [ceftriaxone 1 gram solution for injection] Route: IVPB; ld5 Infused Over: 30 mins; Site: right antecubital; 20:48 Follow up: IV Status: Completed infusion; IV Intake: 50ml ld5 19:25 Drug: azithromycin 500 mg [azithromycin 250 mg tablet (2 tabs)] Route: PO; ld5 19:25 Drug: HYDROcodone-acetaminophen 1 tabs [hydrocodone 5 mg-acetaminophen 325 mg tablet (1 ld5 tabs)] Route: PO; 21:02 Follow up: Response: Confirmed pt not driving.; No significant change. ld5 21:02 Drug: HYDROcodone-acetaminophen 4 pack- 1 packets [hydrocodone 5 mg-acetaminophen 325 ld5 mg tablet (1 tabs)] {Co-Signature: [facility] (Tiffany Manzanares RN).} Route: PO; 21:02 Follow up: Response: Med's dispensed home ld5 Signatures: Dispatcher [employer] EDMS Alberta Sanders RN RN [facility] Naomie, María, Reg Reg gb Joanne, Reji, PHYSICAL BIOCHEMIST PHYSICAL BIOCHEMIST kb5 Shaji Naik PA-C PAIshaan Griffin PA PA btw Dickerson, Laura, RN RN ld5 Laxmi Muniz Jane RN cjh Jane Hafner RN cj The chart was reviewed and I authenticate all verbal orders and agree with the evaluation and treatment provided.Corrections: (The following items were deleted from the chart) 18:48 18:24 OSMOLALITY, SERUM+LAB ordered. EDMS EDMS Attachments: 16:56 [facility] Payment Agreement gjnaya 10/11 09:56 T-Sheet-- Draft Copy Chart Complete MTDD
--- NOTE | 2016-10-12 22:04 | EDDOCDS ---
Physician Documentation [facility] Name: Jamir Boyd Age: 56 yrs Sex: Male : 1960 Arrival Date: 10/10/2016 Time: 15:28 Bed I4 / M4 Private MD: NO PRIMARY PHYSICIAN, . Disposition: 10/10/16 20:41 Discharged to Home/Self Care. Impression: Multiple fractures of ribs, left side - 4-9, Unspecified bacterial pneumonia - RLL, Hypo-osmolality and hyponatremia - beer potomania. - Condition is Stable. - Discharge Instructions: Hyponatremia, Pneumonia, Adult. - Prescriptions for Amoxicillin 500 mg Oral Capsule - take 1 capsule by ORAL route every 8 hours for 10 days; 30 tablet. [place] 5- 325 mg Oral Tablet - take 1 tablet by ORAL route every 6 hours As needed MDD: 4 tabs; 16 tablet. Zithromax 250 mg Oral Tablet - take 1 tablet by ORAL route once daily start tomorrow; 4 tablet. - Medication Reconciliation, Local Pharmacy Hours, Work Release Form - 5 day form. - Follow up: Emergency Department; When: 1 - 2 days; Reason: Recheck today's complaints, Continuance of care. [facility]; When: Call to arrange an appointment; Reason: Recheck today's complaints, To establish care. - Problem is new. - Symptoms have improved. Historical: - Allergies: no known allergies; - Home Meds: 1. aspirin 81 mg Oral tab 1 tab once daily (Last dose: 10/10/2016) - PMHx: none; - PSHx: metal plate rt ankle; Tonsillectomy; - Social history: Smoking status: Patient uses tobacco products, current every day smoker. No barriers to communication noted, The patient speaks fluent Polish, Speaks appropriately for age. - Family history: Not pertinent. - : The pt / caregiver states he / she is not on anticoagulants. Home medication list is obtained from the patient. - Exposure Risk Screening:: None identified. Vital Signs: 10/10 15:30 BP 164 / 97; Pulse 108; Resp 18 S; Temp 97.5(O); Pulse Ox 94% on R/A; Weight 73.48 kg / gr2 162 lbs (M); Height 5 ft. 7 in. (170.18 cm) (M); Pain 8/10; 21:00 BP 156 / 98 LA (man/); Pulse 74; Resp 18; Temp 98; Pulse Ox 94% on R/A; Pain 6/10; ld5 15:30 Body Mass Index 25.37 (73.48 kg, 170.18 cm) gr2 MDM: 15:53 IV Saline Lock ordered. btw 15:54 CBC with Diff Ordered. EDMS 15:54 Complete Comphrensive Metabolic Ordered. EDMS 15:54 ESR Ordered. EDMS 15:54 CRP Ordered. EDMS 15:54 CT Chest With Contrast Ordered. EDMS 16:02 Pulse ox continuous ordered. btw 16:42 Financial registration complete. gjb 16:49 NOTHING BY MOUTH+DIET ordered. EDMS 16:56 [facility] Payment Agreement was scanned into [employer] and attached to record. gjb 17:18 CBC with Diff Reviewed. btw 17:18 ESR Reviewed. btw 17:30 Complete Comphrensive Metabolic Reviewed. btw 17:30 CRP Reviewed. btw 17:50 morphine 4 mg IVP every 30 minutes; Document pain score/vitals after each dose (Hold if btw SBP < 90mmHg) x2 ordered. 18:30 Urine Dip ordered. ar2 18:36 NS 0.9% 1000 ml IV at bolus once ordered. ar2 19:09 cefTRIAXone 1 grams IVPB once over 30 mins; dilute in 50mL of NS or D5W ordered. ar2 19:09 azithromycin 500 mg PO once ordered. ar2 19:09 HYDROcodone-acetaminophen 5 mg-325 mg 1 tabs PO once ordered. ar2 19:09 Call Respiratory ordered. ar2 19:13 Call Respiratory complete. kb5 20:44 HYDROcodone-acetaminophen 4 pack- 5 mg-325 mg 1 packets PO Per package directions; ar2 Dispense with patient. 1 po q4h prn for pain ordered. 10/11 09:56 T-Sheet-- Draft Copy was scanned into [employer] and attached to record. 09:56 Radiology Report was scanned into [employer] and attached to record. Point of Care Testing: Urine Dip: 10/10 18:50 pH: 6; ; Specific [place]: 1.000; Ketones: Moderate; Glucose: Negative; Protein: Trace; cjh Leukocytes: Negative; Nitrite: Negative ; Blood: Non Hemolyzed Trace; Bilirubin: Small (+) ; Urobilinogen: Normal Ranges: Administered Medications: 17:52 Drug: morphine 4 mg [morphine 4 mg/mL intravenous cartridge (1 mL)] Route: IVP; Site: [facility] right antecubital; 18:59 Drug: NS 0.9% 1000 ml Route: IV; Rate: bolus; Site: right antecubital; [facility] 20:48 Follow up: IV Status: Completed infusion; IV Intake: 1000ml ld5 19:25 Drug: cefTRIAXone 1 grams [ceftriaxone 1 gram solution for injection] Route: IVPB; ld5 Infused Over: 30 mins; Site: right antecubital; 20:48 Follow up: IV Status: Completed infusion; IV Intake: 50ml ld5 19:25 Drug: azithromycin 500 mg [azithromycin 250 mg tablet (2 tabs)] Route: PO; ld5 19:25 Drug: HYDROcodone-acetaminophen 1 tabs [hydrocodone 5 mg-acetaminophen 325 mg tablet (1 ld5 tabs)] Route: PO; 21:02 Follow up: Response: Confirmed pt not driving.; No significant change. ld5 21:02 Drug: HYDROcodone-acetaminophen 4 pack- 1 packets [hydrocodone 5 mg-acetaminophen 325 ld5 mg tablet (1 tabs)] {Co-Signature: [facility] (Tiffany Manzanares RN).} Route: PO; 21:02 Follow up: Response: Med's dispensed home ld5 Signatures: Dispatcher [employer] EDMS Alberta Sanders RN RN [facility] Naomie, María, Reg Reg gb Joanne, Reji, MATH INTERVENTIONIST MATH INTERVENTIONIST kb5 Shaji Naik PA-C PAIshaan Griffin PA PA btw Dickerson, Laura, RN RN ld5 Laxmi Muniz Jane RN cjh Jane Hafner RN cj The chart was reviewed and I authenticate all verbal orders and agree with the evaluation and treatment provided.Corrections: (The following items were deleted from the chart) 18:48 18:24 OSMOLALITY, SERUM+LAB ordered. EDMS EDMS Attachments: 16:56 [facility] Payment Agreement gjnaya 10/11 09:56 T-Sheet-- Draft Copy Chart Complete MTDD
--- NOTE | 2016-10-13 10:51 | EDDOCDS ---
Physician Documentation [facility] Name: Jamir Boyd Age: 56 yrs Sex: Male : 1960 Arrival Date: 10/10/2016 Time: 15:28 Bed I4 / M4 Private MD: NO PRIMARY PHYSICIAN, . Disposition: 10/10/16 20:41 Discharged to Home/Self Care. Impression: Multiple fractures of ribs, left side - 4-9, Unspecified bacterial pneumonia - RLL, Hypo-osmolality and hyponatremia - beer potomania. - Condition is Stable. - Discharge Instructions: Hyponatremia, Pneumonia, Adult. - Prescriptions for Amoxicillin 500 mg Oral Capsule - take 1 capsule by ORAL route every 8 hours for 10 days; 30 tablet. [place] 5- 325 mg Oral Tablet - take 1 tablet by ORAL route every 6 hours As needed MDD: 4 tabs; 16 tablet. Zithromax 250 mg Oral Tablet - take 1 tablet by ORAL route once daily start tomorrow; 4 tablet. - Medication Reconciliation, Local Pharmacy Hours, Work Release Form - 5 day form. - Follow up: Emergency Department; When: 1 - 2 days; Reason: Recheck today's complaints, Continuance of care. Follow up: [facility]; When: Call to arrange an appointment; Reason: Recheck today's complaints, To establish care. - Problem is new. - Symptoms have improved. Historical: - Allergies: no known allergies; - Home Meds: 1. aspirin 81 mg Oral tab 1 tab once daily (Last dose: 10/10/2016) - PMHx: none; - PSHx: metal plate rt ankle; Tonsillectomy; - Social history: Smoking status: Patient uses tobacco products, current every day smoker. No barriers to communication noted, The patient speaks fluent Urdu, Speaks appropriately for age. - Family history: Not pertinent. - : The pt / caregiver states he / she is not on anticoagulants. Home medication list is obtained from the patient. - Exposure Risk Screening:: None identified. Vital Signs: 10/10 15:30 BP 164 / 97; Pulse 108; Resp 18 S; Temp 97.5(O); Pulse Ox 94% on R/A; Weight 73.48 kg / gr2 162 lbs (M); Height 5 ft. 7 in. (170.18 cm) (M); Pain 8/10; 21:00 BP 156 / 98 LA (man/); Pulse 74; Resp 18; Temp 98; Pulse Ox 94% on R/A; Pain 6/10; ld5 15:30 Body Mass Index 25.37 (73.48 kg, 170.18 cm) gr2 MDM: 15:53 IV Saline Lock ordered. btw 15:54 CBC with Diff Ordered. EDMS 15:54 Complete Comphrensive Metabolic Ordered. EDMS 15:54 ESR Ordered. EDMS 15:54 CRP Ordered. EDMS 15:54 CT Chest With Contrast Ordered. EDMS 16:02 Pulse ox continuous ordered. btw 16:42 Financial registration complete. gjb 16:49 NOTHING BY MOUTH+DIET ordered. EDMS 16:56 [facility] Payment Agreement was scanned into [employer] and attached to record. gjb 17:18 CBC with Diff Reviewed. btw 17:18 ESR Reviewed. btw 17:30 Complete Comphrensive Metabolic Reviewed. btw 17:30 CRP Reviewed. btw 17:50 morphine 4 mg IVP every 30 minutes; Document pain score/vitals after each dose (Hold if btw SBP < 90mmHg) x2 ordered. 18:30 Urine Dip ordered. ar2 18:36 NS 0.9% 1000 ml IV at bolus once ordered. ar2 19:09 cefTRIAXone 1 grams IVPB once over 30 mins; dilute in 50mL of NS or D5W ordered. ar2 19:09 azithromycin 500 mg PO once ordered. ar2 19:09 HYDROcodone-acetaminophen 5 mg-325 mg 1 tabs PO once ordered. ar2 19:09 Call Respiratory ordered. ar2 19:13 Call Respiratory complete. kb5 20:44 HYDROcodone-acetaminophen 4 pack- 5 mg-325 mg 1 packets PO Per package directions; ar2 Dispense with patient. 1 po q4h prn for pain ordered. 10/11 09:56 T-Sheet-- Draft Copy was scanned into [employer] and attached to record. 09:56 Radiology Report was scanned into [employer] and attached to record. Point of Care Testing: Urine Dip: 10/10 18:50 pH: 6; ; Specific [place]: 1.000; Ketones: Moderate; Glucose: Negative; Protein: Trace; cjh Leukocytes: Negative; Nitrite: Negative ; Blood: Non Hemolyzed Trace; Bilirubin: Small (+) ; Urobilinogen: Normal Ranges: Administered Medications: 17:52 Drug: morphine 4 mg [morphine 4 mg/mL intravenous cartridge (1 mL)] Route: IVP; Site: [facility] right antecubital; 18:59 Drug: NS 0.9% 1000 ml Route: IV; Rate: bolus; Site: right antecubital; [facility] 20:48 Follow up: IV Status: Completed infusion; IV Intake: 1000ml ld5 19:25 Drug: cefTRIAXone 1 grams [ceftriaxone 1 gram solution for injection] Route: IVPB; ld5 Infused Over: 30 mins; Site: right antecubital; 20:48 Follow up: IV Status: Completed infusion; IV Intake: 50ml ld5 19:25 Drug: azithromycin 500 mg [azithromycin 250 mg tablet (2 tabs)] Route: PO; ld5 19:25 Drug: HYDROcodone-acetaminophen 1 tabs [hydrocodone 5 mg-acetaminophen 325 mg tablet (1 ld5 tabs)] Route: PO; 21:02 Follow up: Response: Confirmed pt not driving.; No significant change. ld5 21:02 Drug: HYDROcodone-acetaminophen 4 pack- 1 packets [hydrocodone 5 mg-acetaminophen 325 ld5 mg tablet (1 tabs)] {Co-Signature: [facility] (Tiffany Manzanares RN).} Route: PO; 21:02 Follow up: Response: Med's dispensed home ld5 Addendum: 10/13/2016 10:50 Radiology Callback: A certified letter will be sent to the patient / guardian. sd1 Radiology results faxed to primary care physician/provider. GME. Signatures: Dispatcher [employer] Mel Perez MD MD sd1 Alberta Sanders, RN RN [facility] Barnhardt, María, Reg Reg gb [place], Reji, TRIMMER TAILER TRIMMER TAILER kb5 Shaji Naik PA-C PALayo ar2 Ishaan Saenz PA PA btw Dickerson, Laura, RN RN ld5 Laxmi Muniz Jane RN [facility] Tiffany Manzanares RN [facility] The chart was reviewed and I authenticate all verbal orders and agree with the evaluation and treatment provided.Corrections: (The following items were deleted from the chart) 10/10 18:48 18:24 OSMOLALITY, SERUM+LAB ordered. EDMS EDMS Attachments: 16:56 [facility] Payment Agreement gjb 10/11 09:56 T-Sheet-- Draft Copy gb MTDD
--- NOTE | 2016-10-13 10:51 | EDDOCDS ---
Nurse's Notes [facility] Name: Jamir Boyd Age: 56 yrs Sex: Male : 1960 Arrival Date: 10/10/2016 Time: 15:28 Bed I4 / M4 Private MD: NO PRIMARY PHYSICIAN, . Diagnosis: Multiple fractures of ribs, left side-4-9;Unspecified bacterial pneumonia-RLL;Hypo-osmolality and hyponatremia-beer potomania Presentation: 10/10 15:35 Presenting complaint: Patient states: Fell on Thursday. Doesn't remember the fall. ld5 Presents today with increasing left upper back pain. Adult Sepsis Screening: The patient does not have new or worsening altered mentation. Patient's respiratory rate is less than 22. Systolic blood pressure is greater than 100. Patient has a qSOFA score of 0- Negative Sepsis Screen. Suicide/Homicide risk assessment- the patient denies having any suicidal and/or homicidal ideations and does not present with any other emotional, behavioral or mental health complaints. 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 Transition of care: patient was not received from another setting of care. 15:35 Acuity: PARKER Level 4 ld5 15:35 Method Of Arrival: Walkin/Carried/Asstd ld5 Triage Assessment: 15:37 General: Appears in no apparent distress. Pain: Location: left scapular area and left ld5 subscapular area Pain currently is 10 out of 10 on a pain scale. HIV screening NA for this visit Offered previously. Neurological: Level of Consciousness is awake, alert. Respiratory: Reports cough that is productive. Musculoskeletal: Reports "rattling" to left ribs. Historical: - Allergies: no known allergies; - Home Meds: 1. aspirin 81 mg Oral tab 1 tab once daily (Last dose: 10/10/2016) - PMHx: none; - PSHx: metal plate rt ankle; Tonsillectomy; - Social history: Smoking status: Patient uses tobacco products, current every day smoker. No barriers to communication noted, The patient speaks fluent Latvian, Speaks appropriately for age. - Family history: Not pertinent. - : The pt / caregiver states he / she is not on anticoagulants. Home medication list is obtained from the patient. - Exposure Risk Screening:: None identified. Screenin:26 Screening information is obtained from the patient. Fall risk: No risks identified. ld5 Assistance ADL's: requires no assistance with activities of daily living. Abuse/DV Screen: The patient / caregiver reports he/she is: not in a situation that causes fear, pain or injury. Nutritional screening: No deficits noted. Advance Directives: There is no active DNR order. home support is adequate. Assessment: 16:40 General: Appears in no apparent distress, Behavior is appropriate for age, cooperative. srm Neurological: Level of Consciousness is awake, alert, Oriented to person, place, time, Moves all extremities. Full function Speech is normal, Facial symmetry appears normal. Respiratory: No deficits noted. GI: No deficits noted. 17:08 General: Appears in no apparent distress, comfortable, Behavior is appropriate for age, h cooperative, resting quietly on stretcher, no new problems or complaints, requesting a drink of water. Reviewed and explained NPO after discussing with provider. 17:57 General: Appears in no apparent distress, Behavior is appropriate for age, cooperative. srm Respiratory: Airway is patent Respiratory effort is even, unlabored, Breath sounds with crackles expiratory in left posterior lower lobe, right posterior middle lobe and right posterior lower lobe Breath sounds are diminished in right posterior middle lobe and right posterior lower lobe. Derm: No deficits noted. 19:25 General: Pt sitting up in bed. No apparent distress. Pt medicated per orders. Will ld5 continue to monitor. 20:04 General: IV medications complete, fluids continue infusing without difficulty, awaiting [facility] discharge. 20:19 General: Pt laying quietly in bed. No apparent distress. Bolus infusing. Will continue ld5 to monitor. 21:00 General: Pt reports increased pain when going from laying to sitting. Medications and ld5 incentive spirometer importance explained to pt and family member. Pain: Pain currently is 6 out of 10 on a pain scale. Neurological: Level of Consciousness is awake, alert. Respiratory: Airway is patent Respiratory effort is even, unlabored. Vital Signs: 15:30 BP 164 / 97; Pulse 108; Resp 18 S; Temp 97.5(O); Pulse Ox 94% on R/A; Weight 73.48 kg gr2 (M); Height 5 ft. 7 in. (170.18 cm) (M); Pain 8/10; 21:00 BP 156 / 98 LA (man/); Pulse 74; Resp 18; Temp 98; Pulse Ox 94% on R/A; Pain 6/10; ld5 15:30 Body Mass Index 25.37 (73.48 kg, 170.18 cm) gr2 Vitals: 15:30 Log In Time: October 10, 2016 at 15:30. gr2 ED Course: 15:29 Patient visited by Andrey Sanchez. gr2 15:29 Patient moved to Waiting gr2 15:30 NO PRIMARY PHYSICIAN, . is Private Physician. gr2 15:32 Patient visited by Andrey Sanchez. gr2 15:32 Patient moved to Pre RCE gr2 15:37 Triage Initiated ld5 15:39 Patient visited by Ava Perla RN. ld5 15:39 Ishaan Saenz PA is PHCP. btw 15:39 Mary Alston MD is Attending Physician. btw 15:39 Patient visited by Ishaan Saenz PA. btw 15:39 Patient moved to Triage 1 ld5 15:54 Patient moved to I6 / 28 jjr 15:55 Patient moved to I4 / M4 btw 16:10 Patient visited by Morteza Cummings PCA. jlf 16:15 Patient visited by Morteza Cummings PCA. jlf 16:40 The patient / caregiver is instructed regarding the plan of care and ED course. srm Accompanied by Significant Other, Patient has correct armband on for positive identification. Placed in gown. Bed in low position. 16:40 CRP Sent. srm 16:40 ESR Sent. srm 16:40 Complete Comphrensive Metabolic Sent. srm 16:40 CBC with Diff Sent. srm 16:40 Inserted saline lock: 20 gauge in right antecubital area and blood collected. srm 16:41 Patient visited by Alberta Sanders RN. srm 16:56 [place] [place] was scanned into [email or web address] and attached to record. gjb 17:37 Patient visited by Morteza Cummings PCA. jlf 17:58 Patient visited by Alberta Sanders RN. srm 18:02 PHCP role handed off by Ishaan Saenz PA ar2 18:02 Shaji Naik PA-C is PHCP. ar2 18:33 Patient visited by Morteza Cummings PCA. jlf 19:08 CT Chest With Contrast Returned. EDMS 19:26 No procedures done that require assistance. ld5 19:27 Patient visited by Ava Perla,BALDOMERO. ld5 20:10 Patient visited by Reji Rubio PCA. kb5 20:19 Patient visited by Ava Perla,BALDOMERO. ld5 20:40 [facility] is Referral Physician. ar2 21:00 Discontinued lock intact, bleeding controlled, pressure dressing applied, No ld5 redness/swelling at site. 21:03 Patient visited by Ava Perla RN. ld5 10/11 09:56 T-Sheet-- Draft Copy was scanned into [email or web address] and attached to record. gb 09:56 Radiology Report was scanned into [email or web address] and attached to record. gb Administered Medications: 10/10 17:52 Drug: morphine 4 mg [morphine 4 mg/mL intravenous cartridge (1 mL)] Route: IVP; Site: srm right antecubital; 18:59 Drug: NS 0.9% 1000 ml Route: IV; Rate: bolus; Site: right antecubital; [facility] 20:48 Follow up: IV Status: Completed infusion; IV Intake: 1000ml ld5 19:25 Drug: cefTRIAXone 1 grams [ceftriaxone 1 gram solution for injection] Route: IVPB; ld5 Infused Over: 30 mins; Site: right antecubital; 20:48 Follow up: IV Status: Completed infusion; IV Intake: 50ml ld5 19:25 Drug: azithromycin 500 mg [azithromycin 250 mg tablet (2 tabs)] Route: PO; ld5 19:25 Drug: HYDROcodone-acetaminophen 1 tabs [hydrocodone 5 mg-acetaminophen 325 mg tablet (1 ld5 tabs)] Route: PO; 21:02 Follow up: Response: Confirmed pt not driving.; No significant change. ld5 21:02 Drug: HYDROcodone-acetaminophen 4 pack- 1 packets [hydrocodone 5 mg-acetaminophen 325 ld5 mg tablet (1 tabs)] {Co-Signature: alisa (Tifafny Manzanares RN).} Route: PO; 21:02 Follow up: Response: Med's dispensed home ld5 Point of Care Testing: Urine Dip: 18:50 pH: 6; ; Specific [place]: 1.000; Ketones: Moderate; Glucose: Negative; Protein: Trace; [facility] Leukocytes: Negative; Nitrite: Negative ; Blood: Non Hemolyzed Trace; Bilirubin: Small (+) ; Urobilinogen: Normal Ranges: Intake: 20:48 IV: 50.00ml; Total: 50.00ml. ld5 20:48 IV: 1000.00ml; Total: 1050.00ml. ld5 RT: 19:27 Incentive Spirometry performed: 10 inspirations. Volume of inspiration: 1500 mls. jc3 Order Results: Lab Order: CBC with Diff; SPEC'M 10/10/16 16:38 Test: WHITE BLOOD COUNT; Value: 9.9; Range: 4.0-10.0; Units: K/mm3; Status: F Test: RED BLOOD COUNT; Value: 5.77; Range: 4.30-6.10; Units: M/mm3; Status: F Test: HEMOGLOBIN; Value: 19.1; Range: 14.0-18.0; Abnormal: Above high normal; Units: g/dl; Status: F Test: HEMATOCRIT; Value: 54.1; Range: 42.0-52.0; Abnormal: Above high normal; Units: %; Status: F Test: MEAN CORPUSCULAR VOLUME; Value: 93.8; Range: 80.0-96.0; Units: fl; Status: F Test: MEAN CORPUSCULAR HEMOGLOBIN; Value: 33.1; Range: 27.0-33.0; Abnormal: Above high normal; Units: pg; Status: F Test: MEAN CORPUSCULAR HGB CONC; Value: 35.3; Range: 32.0-36.5; Units: g/dl; Status: F Test: RED CELL DISTRIBUTION WIDTH; Value: 12.3; Range: 11.5-14.5; Units: %; Status: F Test: PLATELET COUNT, AUTOMATED; Value: 218; Range: 150-450; Units: k/mm3; Status: F Test: NEUTROPHILS %; Value: 78.7; Range: 36.0-66.0; Abnormal: Above high normal; Units: %; Status: F Test: LYMPH %; Value: 9.3; Range: 24.0-44.0; Abnormal: Below low normal; Units: %; Status: F Test: MONO %; Value: 9.0; Range: 0.0-5.0; Abnormal: Above high normal; Units: %; Status: F Test: EOS %; Value: 1.3; Range: 0.0-3.0; Units: %; Status: F Test: BASO %; Value: 0.2; Range: 0.0-1.0; Units: %; Status: F Test: LARGE UNSTAINED CELL %; Value: 1.5; Range: 0.0-4.0; Units: %; Status: F Test: NEUTROPHILS #; Value: 7.8; Range: 1.8-7.7; Abnormal: Above high normal; Units: K/mm3; Status: F Test: LYMPH #; Value: 1.1; Range: 1.5-4.5; Abnormal: Below low normal; Units: K/mm3; Status: F Test: MONO #; Value: 0.9; Range: 0.0-0.8; Abnormal: Above high normal; Units: K/mm3; Status: F Test: EOS #; Value: 0.1; Range: 0.0-0.50; Units: K/mm3; Status: F Test: BASO #; Value: 0.0; Range: 0.0-0.2; Units: K/mm3; Status: F Test: LARGE UNSTAINED CELL #; Value: 0.1; Range: 0.0-0.4; Units: K/mm3; Status: F Lab Order: Complete Comphrensive Metabolic; SPEC'M 10/10/16 16:38 Test: GLUCOSE, FASTING; Value: 118; Range: 70-105; Abnormal: Above high normal; Units: MG/DL; Status: F Test: BLOOD UREA NITROGEN; Value: 11; Range: 7-18; Units: MG/DL; Status: F Test: CREATININE FOR GFR; Value: 0.73; Range: 0.70-1.30; Units: MG/DL; Status: F Test: GLOMERULAR FILTRATION RATE; Value: > 60.0; Range: >56; Status: F Test: SODIUM LEVEL; Value: 130; Range: 136-145; Abnormal: Below low normal; Units: MEQ/L; Status: F Test: POTASSIUM SERUM; Value: 4.1; Range: 3.5-5.1; Units: MEQ/L; Status: F Test: CHLORIDE LEVEL; Value: 94; Range: 98-107; Abnormal: Below low normal; Units: MEQ/L; Status: F Test: CARBON DIOXIDE LEVEL; Value: 23; Range: 21-32; Units: MEQ/L; Status: F Test: ANION GAP; Value: 13; Range: 8-16; Units: MEQ/L; Status: F Test: CALCIUM LEVEL; Value: 9.1; Range: 8.5-10.1; Units: MG/DL; Status: F Test: AST/SGOT; Value: 21; Range: 15-37; Units: U/L; Status: F Test: ALT/SGPT; Value: 21; Range: 12-78; Units: U/L; Status: F Test: ALKALINE PHOSPHATASE; Value: 90; Range: 45-117; Units: U/L; Status: F Test: BILIRUBIN,TOTAL; Value: 1.0; Range: 0.2-1.0; Units: MG/DL; Status: F Test: TOTAL PROTEIN; Value: 7.4; Range: 6.4-8.2; Units: GM/DL; Status: F Test: ALBUMIN; Value: 3.7; Range: 3.2-5.2; Units: GM/DL; Status: F Test: ALBUMIN/GLOBULIN RATIO; Value: 1.00; Range: 1.00-1.93; Status: F Test Note: ; Units are mL/min/1.73 m2 Chronic Kidney Disease Staging per NKF: Stage I & II GFR >=60 Normal to Mildly Decreased Stage III GFR 30-59 Moderately Decreased Stage IV GFR 15-29 Severely Decreased Stage V GFR <15 Very Little GFR Left ESRD GFR <15 on WAFER SUBSTRATE TESTER Lab Order: ESR; SPEC'M 10/10/16 16:38 Test: ERYTHROCYTE SEDIMENTATION RATE; Value: 3; Range: 0-20; Units: mm/hr; Status: F Lab Order: CRP; SPEC'M 10/10/16 16:38 Test: C REACTIVE PROTEIN QUANTITATIV; Value: 10.10; Range: 0.00-0.30; Abnormal: Above high normal; Units: MG/DL; Status: F Radiology Order: CT Chest With Contrast Test: CT Chest With Contrast REASON FOR EXAMINATION: Trauma; Clinical: Trauma.; ; Technique: Axial contrast enhanced images from the thoracic inlet to the upper; abdomen using 100 ml Isovue 370 intravenous contrast material with coronal and; sagittal re-formations.; ; Findings:; Left anterolateral 4th through 9th rib fractures are identified with minimal; displacement at the fracture sites of the 5th through 7th ribs. The left; hemithorax is well-aerated and without consolidation/contusion, effusion or; pneumothorax. Incidental note is made of a 6 mm noncalcified subpleural nodule; in the left lower lobe (image 57). Right lower lobe infiltrate may represent; acute pneumonia and/or areas of pulmonary parenchymal contusion. No right; pleural effusion or pneumothorax. The tracheobronchial tree is patent. The; mediastinum demonstrates normal heart/pericardium and thoracic aorta. No; adenopathy. Thoracic vertebral bodies are intact.; ; Impression:; 1. Left anterolateral fourth through ninth rib fractures.; 2. Right lower lobe infiltrate compatible with acute pneumonia versus areas of; parenchymal contusion.; 3. 6 mm noncalcified left lower lobe sub pleural nodule. Consider initial; follow-up examination and 3-6 months.; ; ; Signed by; Leonid Hilton MD 10/10/2016 06:22 P; Outcome: 19:26 CT Study completed. ld5 20:41 Discharge ordered by Provider. ar2 21:00 Discharge Assessment: Patient awake, alert and oriented x 3. No cognitive and/or ld5 functional deficits noted. Patient verbalized understanding of disposition instructions. patient administered narcotics - yes. Pt provided with safe discharge. The following High Risk Discharge criteria are identified: None. Discharged to home ambulatory, with significant other. Condition: stable. Discharge instructions given to patient, significant other, Instructed on discharge instructions, follow up and referral plans. medication usage, no driving heavy equipment, incentive spirometer Demonstrated understanding of instructions, medications, Pt was receptive of discharge instructions/ teaching. Prescriptions given X 3, Work note provided to patient. Property :Personal belongings accompany Pt. 21:03 Patient left the ED. ld5 Signatures: Dispatcher [employer] EDMS Alberta Sanders RN RN srm Barnhardt, Gloria, Reg Reg gb Reji Rubio, SHAISTA PLATEMAKER kb5 Yadira Sanchez RN RN jjr Colello, Joseph jc3 Shaji Naik PA-C PA-C ar2 Ishaan Saenz PA PA btw Dickerson, Laura,RN RN ld5 Tiffany Manzanares,RN RN cjh Andrey Sanchez gr2 Morteza Cummings, PLATEMAKER PLATEMAKER Laxmi Crockettb Tiffany Manzanares RN [facility] MTDD
--- NOTE | 2016-10-13 10:51 | EDDOCDS ---
Physician Documentation [facility] Name: Jamir Boyd Age: 56 yrs Sex: Male : 1960 Arrival Date: 10/10/2016 Time: 15:28 Bed I4 / M4 Private MD: NO PRIMARY PHYSICIAN, . Disposition: 10/10/16 20:41 Discharged to Home/Self Care. Impression: Multiple fractures of ribs, left side - 4-9, Unspecified bacterial pneumonia - RLL, Hypo-osmolality and hyponatremia - beer potomania. - Condition is Stable. - Discharge Instructions: Hyponatremia, Pneumonia, Adult. - Prescriptions for Amoxicillin 500 mg Oral Capsule - take 1 capsule by ORAL route every 8 hours for 10 days; 30 tablet. [place] 5- 325 mg Oral Tablet - take 1 tablet by ORAL route every 6 hours As needed MDD: 4 tabs; 16 tablet. Zithromax 250 mg Oral Tablet - take 1 tablet by ORAL route once daily start tomorrow; 4 tablet. - Medication Reconciliation, Local Pharmacy Hours, Work Release Form - 5 day form. - Follow up: Emergency Department; When: 1 - 2 days; Reason: Recheck today's complaints, Continuance of care. Follow up: [facility]; When: Call to arrange an appointment; Reason: Recheck today's complaints, To establish care. - Problem is new. - Symptoms have improved. Historical: - Allergies: no known allergies; - Home Meds: 1. aspirin 81 mg Oral tab 1 tab once daily (Last dose: 10/10/2016) - PMHx: none; - PSHx: metal plate rt ankle; Tonsillectomy; - Social history: Smoking status: Patient uses tobacco products, current every day smoker. No barriers to communication noted, The patient speaks fluent Estonian, Speaks appropriately for age. - Family history: Not pertinent. - : The pt / caregiver states he / she is not on anticoagulants. Home medication list is obtained from the patient. - Exposure Risk Screening:: None identified. Vital Signs: 10/10 15:30 BP 164 / 97; Pulse 108; Resp 18 S; Temp 97.5(O); Pulse Ox 94% on R/A; Weight 73.48 kg / gr2 162 lbs (M); Height 5 ft. 7 in. (170.18 cm) (M); Pain 8/10; 21:00 BP 156 / 98 LA (man/); Pulse 74; Resp 18; Temp 98; Pulse Ox 94% on R/A; Pain 6/10; ld5 15:30 Body Mass Index 25.37 (73.48 kg, 170.18 cm) gr2 MDM: 15:53 IV Saline Lock ordered. btw 15:54 CBC with Diff Ordered. EDMS 15:54 Complete Comphrensive Metabolic Ordered. EDMS 15:54 ESR Ordered. EDMS 15:54 CRP Ordered. EDMS 15:54 CT Chest With Contrast Ordered. EDMS 16:02 Pulse ox continuous ordered. btw 16:42 Financial registration complete. gjb 16:49 NOTHING BY MOUTH+DIET ordered. EDMS 16:56 [facility] Payment Agreement was scanned into [employer] and attached to record. gjb 17:18 CBC with Diff Reviewed. btw 17:18 ESR Reviewed. btw 17:30 Complete Comphrensive Metabolic Reviewed. btw 17:30 CRP Reviewed. btw 17:50 morphine 4 mg IVP every 30 minutes; Document pain score/vitals after each dose (Hold if btw SBP < 90mmHg) x2 ordered. 18:30 Urine Dip ordered. ar2 18:36 NS 0.9% 1000 ml IV at bolus once ordered. ar2 19:09 cefTRIAXone 1 grams IVPB once over 30 mins; dilute in 50mL of NS or D5W ordered. ar2 19:09 azithromycin 500 mg PO once ordered. ar2 19:09 HYDROcodone-acetaminophen 5 mg-325 mg 1 tabs PO once ordered. ar2 19:09 Call Respiratory ordered. ar2 19:13 Call Respiratory complete. kb5 20:44 HYDROcodone-acetaminophen 4 pack- 5 mg-325 mg 1 packets PO Per package directions; ar2 Dispense with patient. 1 po q4h prn for pain ordered. 10/11 09:56 T-Sheet-- Draft Copy was scanned into e27 and attached to record. 09:56 Radiology Report was scanned into e27 and attached to record. Point of Care Testing: Urine Dip: 10/10 18:50 pH: 6; ; Specific [place]: 1.000; Ketones: Moderate; Glucose: Negative; Protein: Trace; cjh Leukocytes: Negative; Nitrite: Negative ; Blood: Non Hemolyzed Trace; Bilirubin: Small (+) ; Urobilinogen: Normal Ranges: Administered Medications: 17:52 Drug: morphine 4 mg [morphine 4 mg/mL intravenous cartridge (1 mL)] Route: IVP; Site: [facility] right antecubital; 18:59 Drug: NS 0.9% 1000 ml Route: IV; Rate: bolus; Site: right antecubital; [facility] 20:48 Follow up: IV Status: Completed infusion; IV Intake: 1000ml ld5 19:25 Drug: cefTRIAXone 1 grams [ceftriaxone 1 gram solution for injection] Route: IVPB; ld5 Infused Over: 30 mins; Site: right antecubital; 20:48 Follow up: IV Status: Completed infusion; IV Intake: 50ml ld5 19:25 Drug: azithromycin 500 mg [azithromycin 250 mg tablet (2 tabs)] Route: PO; ld5 19:25 Drug: HYDROcodone-acetaminophen 1 tabs [hydrocodone 5 mg-acetaminophen 325 mg tablet (1 ld5 tabs)] Route: PO; 21:02 Follow up: Response: Confirmed pt not driving.; No significant change. ld5 21:02 Drug: HYDROcodone-acetaminophen 4 pack- 1 packets [hydrocodone 5 mg-acetaminophen 325 ld5 mg tablet (1 tabs)] {Co-Signature: [facility] (Tiffany Manzanares RN).} Route: PO; 21:02 Follow up: Response: Med's dispensed home ld5 Addendum: 10/13/2016 10:50 Radiology Callback: A certified letter will be sent to the patient / guardian. sd1 Radiology results faxed to primary care physician/provider. GME. Signatures: Dispatcher [employer] Mel Perez MD MD sd1 Alberta Sanders, RN RN [facility] Barnhardt, María, Reg Reg gb [place], Reji, UNIVERSITY LECTURER UNIVERSITY LECTURER kb5 Shaji Naik PA-C PALayo ar2 Ishaan Saenz PA PA btw Dickerson, Laura, RN RN ld5 Laxmi Muniz Jane RN [facility] Tiffany Manzanares RN [facility] The chart was reviewed and I authenticate all verbal orders and agree with the evaluation and treatment provided.Corrections: (The following items were deleted from the chart) 10/10 18:48 18:24 OSMOLALITY, SERUM+LAB ordered. EDMS EDMS Attachments: 16:56 [facility] [place] Agreement gjb 10/11 09:56 T-Sheet-- Draft Copy gb MTDD
--- NOTE | 2016-10-13 10:52 | EDDOCDS ---
Nurse's Notes [facility] Name: Jamir Boyd Age: 56 yrs Sex: Male : 1960 Arrival Date: 10/10/2016 Time: 15:28 Bed I4 / M4 Private MD: NO PRIMARY PHYSICIAN, . Diagnosis: Multiple fractures of ribs, left side-4-9;Unspecified bacterial pneumonia-RLL;Hypo-osmolality and hyponatremia-beer potomania Presentation: 10/10 15:35 Presenting complaint: Patient states: Fell on Thursday. Doesn't remember the fall. ld5 Presents today with increasing left upper back pain. Adult Sepsis Screening: The patient does not have new or worsening altered mentation. Patient's respiratory rate is less than 22. Systolic blood pressure is greater than 100. Patient has a qSOFA score of 0- Negative Sepsis Screen. Suicide/Homicide risk assessment- the patient denies having any suicidal and/or homicidal ideations and does not present with any other emotional, behavioral or mental health complaints. Status: Patient is not a hvac field service technician or dependent. Transition of care: patient was not received from another setting of care. 15:35 Acuity: PRAKER Level 4 ld5 15:35 Method Of Arrival: Walkin/Carried/Asstd ld5 Triage Assessment: 15:37 General: Appears in no apparent distress. Pain: Location: left scapular area and left ld5 subscapular area Pain currently is 10 out of 10 on a pain scale. HIV screening NA for this visit Offered previously. Neurological: Level of Consciousness is awake, alert. Respiratory: Reports cough that is productive. Musculoskeletal: Reports "rattling" to left ribs. Historical: - Allergies: no known allergies; - Home Meds: 1. aspirin 81 mg Oral tab 1 tab once daily (Last dose: 10/10/2016) - PMHx: none; - PSHx: metal plate rt ankle; Tonsillectomy; - Social history: Smoking status: Patient uses tobacco products, current every day smoker. No barriers to communication noted, The patient speaks fluent Irish, Speaks appropriately for age. - Family history: Not pertinent. - : The pt / caregiver states he / she is not on anticoagulants. Home medication list is obtained from the patient. - Exposure Risk Screening:: None identified. Screenin:26 Screening information is obtained from the patient. Fall risk: No risks identified. ld5 Assistance ADL's: requires no assistance with activities of daily living. Abuse/DV Screen: The patient / caregiver reports he/she is: not in a situation that causes fear, pain or injury. Nutritional screening: No deficits noted. Advance Directives: There is no active DNR order. home support is adequate. Assessment: 16:40 General: Appears in no apparent distress, Behavior is appropriate for age, cooperative. srm Neurological: Level of Consciousness is awake, alert, Oriented to person, place, time, Moves all extremities. Full function Speech is normal, Facial symmetry appears normal. Respiratory: No deficits noted. GI: No deficits noted. 17:08 General: Appears in no apparent distress, comfortable, Behavior is appropriate for age, h cooperative, resting quietly on stretcher, no new problems or complaints, requesting a drink of water. Reviewed and explained NPO after discussing with provider. 17:57 General: Appears in no apparent distress, Behavior is appropriate for age, cooperative. srm Respiratory: Airway is patent Respiratory effort is even, unlabored, Breath sounds with crackles expiratory in left posterior lower lobe, right posterior middle lobe and right posterior lower lobe Breath sounds are diminished in right posterior middle lobe and right posterior lower lobe. Derm: No deficits noted. 19:25 General: Pt sitting up in bed. No apparent distress. Pt medicated per orders. Will ld5 continue to monitor. 20:04 General: IV medications complete, fluids continue infusing without difficulty, awaiting [facility] discharge. 20:19 General: Pt laying quietly in bed. No apparent distress. Bolus infusing. Will continue ld5 to monitor. 21:00 General: Pt reports increased pain when going from laying to sitting. Medications and ld5 incentive spirometer importance explained to pt and family member. Pain: Pain currently is 6 out of 10 on a pain scale. Neurological: Level of Consciousness is awake, alert. Respiratory: Airway is patent Respiratory effort is even, unlabored. Vital Signs: 15:30 BP 164 / 97; Pulse 108; Resp 18 S; Temp 97.5(O); Pulse Ox 94% on R/A; Weight 73.48 kg gr2 (M); Height 5 ft. 7 in. (170.18 cm) (M); Pain 8/10; 21:00 BP 156 / 98 LA (man/); Pulse 74; Resp 18; Temp 98; Pulse Ox 94% on R/A; Pain 6/10; ld5 15:30 Body Mass Index 25.37 (73.48 kg, 170.18 cm) gr2 Vitals: 15:30 Log In Time: October 10, 2016 at 15:30. gr2 ED Course: 15:29 Patient visited by Andrey Sanchez. gr2 15:29 Patient moved to Waiting gr2 15:30 NO PRIMARY PHYSICIAN, . is Private Physician. gr2 15:32 Patient visited by Andrey Sanchez. gr2 15:32 Patient moved to Pre RCE gr2 15:37 Triage Initiated ld5 15:39 Patient visited by Ava Perla RN. ld5 15:39 Ishaan Saenz PA is PHCP. btw 15:39 Mary Alston MD is Attending Physician. btw 15:39 Patient visited by Ishaan Saenz PA. btw 15:39 Patient moved to Triage 1 ld5 15:54 Patient moved to I6 / 28 jjr 15:55 Patient moved to I4 / M4 btw 16:10 Patient visited by Morteza Cummings PCA. jlf 16:15 Patient visited by Morteza Cummings PCA. jlf 16:40 The patient / caregiver is instructed regarding the plan of care and ED course. srm Accompanied by Significant Other, Patient has correct armband on for positive identification. Placed in gown. Bed in low position. 16:40 CRP Sent. srm 16:40 ESR Sent. srm 16:40 Complete Comphrensive Metabolic Sent. srm 16:40 CBC with Diff Sent. srm 16:40 Inserted saline lock: 20 gauge in right antecubital area and blood collected. srm 16:41 Patient visited by Alberta Sanders RN. srm 16:56 [facility] Payment Agreement was scanned into [employer] and attached to record. gjb 17:37 Patient visited by Morteza Cummings PCA. jlf 17:58 Patient visited by Alberta Sanders RN. srm 18:02 PHCP role handed off by Ishaan Saenz PA ar2 18:02 Shaji Naik PA-C is PHCP. ar2 18:33 Patient visited by Morteza Cummings PCA. jlf 19:08 CT Chest With Contrast Returned. EDMS 19:26 No procedures done that require assistance. ld5 19:27 Patient visited by Ava Perla,BALDOMERO. ld5 20:10 Patient visited by Reji Rubio PCA. kb5 20:19 Patient visited by Ava Perla,BALDOMERO. ld5 20:40 [facility] is Referral Physician. ar2 21:00 Discontinued lock intact, bleeding controlled, pressure dressing applied, No ld5 redness/swelling at site. 21:03 Patient visited by Ava Perla RN. ld5 10/11 09:56 T-Sheet-- Draft Copy was scanned into [employer] and attached to record. gb 09:56 Radiology Report was scanned into [employer] and attached to record. gb Administered Medications: 10/10 17:52 Drug: morphine 4 mg [morphine 4 mg/mL intravenous cartridge (1 mL)] Route: IVP; Site: srm right antecubital; 18:59 Drug: NS 0.9% 1000 ml Route: IV; Rate: bolus; Site: right antecubital; [facility] 20:48 Follow up: IV Status: Completed infusion; IV Intake: 1000ml ld5 19:25 Drug: cefTRIAXone 1 grams [ceftriaxone 1 gram solution for injection] Route: IVPB; ld5 Infused Over: 30 mins; Site: right antecubital; 20:48 Follow up: IV Status: Completed infusion; IV Intake: 50ml ld5 19:25 Drug: azithromycin 500 mg [azithromycin 250 mg tablet (2 tabs)] Route: PO; ld5 19:25 Drug: HYDROcodone-acetaminophen 1 tabs [hydrocodone 5 mg-acetaminophen 325 mg tablet (1 ld5 tabs)] Route: PO; 21:02 Follow up: Response: Confirmed pt not driving.; No significant change. ld5 21:02 Drug: HYDROcodone-acetaminophen 4 pack- 1 packets [hydrocodone 5 mg-acetaminophen 325 ld5 mg tablet (1 tabs)] {Co-Signature: alisa (Tiffany Manzanares RN).} Route: PO; 21:02 Follow up: Response: Med's dispensed home ld5 Point of Care Testing: Urine Dip: 18:50 pH: 6; ; Specific [place]: 1.000; Ketones: Moderate; Glucose: Negative; Protein: Trace; [facility] Leukocytes: Negative; Nitrite: Negative ; Blood: Non Hemolyzed Trace; Bilirubin: Small (+) ; Urobilinogen: Normal Ranges: Intake: 20:48 IV: 50.00ml; Total: 50.00ml. ld5 20:48 IV: 1000.00ml; Total: 1050.00ml. ld5 RT: 19:27 Incentive Spirometry performed: 10 inspirations. Volume of inspiration: 1500 mls. jc3 Order Results: Lab Order: CBC with Diff; SPEC'M 10/10/16 16:38 Test: WHITE BLOOD COUNT; Value: 9.9; Range: 4.0-10.0; Units: K/mm3; Status: F Test: RED BLOOD COUNT; Value: 5.77; Range: 4.30-6.10; Units: M/mm3; Status: F Test: HEMOGLOBIN; Value: 19.1; Range: 14.0-18.0; Abnormal: Above high normal; Units: g/dl; Status: F Test: HEMATOCRIT; Value: 54.1; Range: 42.0-52.0; Abnormal: Above high normal; Units: %; Status: F Test: MEAN CORPUSCULAR VOLUME; Value: 93.8; Range: 80.0-96.0; Units: fl; Status: F Test: MEAN CORPUSCULAR HEMOGLOBIN; Value: 33.1; Range: 27.0-33.0; Abnormal: Above high normal; Units: pg; Status: F Test: MEAN CORPUSCULAR HGB CONC; Value: 35.3; Range: 32.0-36.5; Units: g/dl; Status: F Test: RED CELL DISTRIBUTION WIDTH; Value: 12.3; Range: 11.5-14.5; Units: %; Status: F Test: PLATELET COUNT, AUTOMATED; Value: 218; Range: 150-450; Units: k/mm3; Status: F Test: NEUTROPHILS %; Value: 78.7; Range: 36.0-66.0; Abnormal: Above high normal; Units: %; Status: F Test: LYMPH %; Value: 9.3; Range: 24.0-44.0; Abnormal: Below low normal; Units: %; Status: F Test: MONO %; Value: 9.0; Range: 0.0-5.0; Abnormal: Above high normal; Units: %; Status: F Test: EOS %; Value: 1.3; Range: 0.0-3.0; Units: %; Status: F Test: BASO %; Value: 0.2; Range: 0.0-1.0; Units: %; Status: F Test: LARGE UNSTAINED CELL %; Value: 1.5; Range: 0.0-4.0; Units: %; Status: F Test: NEUTROPHILS #; Value: 7.8; Range: 1.8-7.7; Abnormal: Above high normal; Units: K/mm3; Status: F Test: LYMPH #; Value: 1.1; Range: 1.5-4.5; Abnormal: Below low normal; Units: K/mm3; Status: F Test: MONO #; Value: 0.9; Range: 0.0-0.8; Abnormal: Above high normal; Units: K/mm3; Status: F Test: EOS #; Value: 0.1; Range: 0.0-0.50; Units: K/mm3; Status: F Test: BASO #; Value: 0.0; Range: 0.0-0.2; Units: K/mm3; Status: F Test: LARGE UNSTAINED CELL #; Value: 0.1; Range: 0.0-0.4; Units: K/mm3; Status: F Lab Order: Complete Comphrensive Metabolic; SPEC'M 10/10/16 16:38 Test: GLUCOSE, FASTING; Value: 118; Range: 70-105; Abnormal: Above high normal; Units: MG/DL; Status: F Test: BLOOD UREA NITROGEN; Value: 11; Range: 7-18; Units: MG/DL; Status: F Test: CREATININE FOR GFR; Value: 0.73; Range: 0.70-1.30; Units: MG/DL; Status: F Test: GLOMERULAR FILTRATION RATE; Value: > 60.0; Range: >56; Status: F Test: SODIUM LEVEL; Value: 130; Range: 136-145; Abnormal: Below low normal; Units: MEQ/L; Status: F Test: POTASSIUM SERUM; Value: 4.1; Range: 3.5-5.1; Units: MEQ/L; Status: F Test: CHLORIDE LEVEL; Value: 94; Range: 98-107; Abnormal: Below low normal; Units: MEQ/L; Status: F Test: CARBON DIOXIDE LEVEL; Value: 23; Range: 21-32; Units: MEQ/L; Status: F Test: ANION GAP; Value: 13; Range: 8-16; Units: MEQ/L; Status: F Test: CALCIUM LEVEL; Value: 9.1; Range: 8.5-10.1; Units: MG/DL; Status: F Test: AST/SGOT; Value: 21; Range: 15-37; Units: U/L; Status: F Test: ALT/SGPT; Value: 21; Range: 12-78; Units: U/L; Status: F Test: ALKALINE PHOSPHATASE; Value: 90; Range: 45-117; Units: U/L; Status: F Test: BILIRUBIN,TOTAL; Value: 1.0; Range: 0.2-1.0; Units: MG/DL; Status: F Test: TOTAL PROTEIN; Value: 7.4; Range: 6.4-8.2; Units: GM/DL; Status: F Test: ALBUMIN; Value: 3.7; Range: 3.2-5.2; Units: GM/DL; Status: F Test: ALBUMIN/GLOBULIN RATIO; Value: 1.00; Range: 1.00-1.93; Status: F Test Note: ; Units are mL/min/1.73 m2 Chronic Kidney Disease Staging per NKF: Stage I & II GFR >=60 Normal to Mildly Decreased Stage III GFR 30-59 Moderately Decreased Stage IV GFR 15-29 Severely Decreased Stage V GFR <15 Very Little GFR Left ESRD GFR <15 on FOIL SPOOLER Lab Order: ESR; SPEC'M 10/10/16 16:38 Test: ERYTHROCYTE SEDIMENTATION RATE; Value: 3; Range: 0-20; Units: mm/hr; Status: F Lab Order: CRP; SPEC'M 10/10/16 16:38 Test: C REACTIVE PROTEIN QUANTITATIV; Value: 10.10; Range: 0.00-0.30; Abnormal: Above high normal; Units: MG/DL; Status: F Radiology Order: CT Chest With Contrast Test: CT Chest With Contrast REASON FOR EXAMINATION: Trauma; Clinical: Trauma.; ; Technique: Axial contrast enhanced images from the thoracic inlet to the upper; abdomen using 100 ml Isovue 370 intravenous contrast material with coronal and; sagittal re-formations.; ; Findings:; Left anterolateral 4th through 9th rib fractures are identified with minimal; displacement at the fracture sites of the 5th through 7th ribs. The left; hemithorax is well-aerated and without consolidation/contusion, effusion or; pneumothorax. Incidental note is made of a 6 mm noncalcified subpleural nodule; in the left lower lobe (image 57). Right lower lobe infiltrate may represent; acute pneumonia and/or areas of pulmonary parenchymal contusion. No right; pleural effusion or pneumothorax. The tracheobronchial tree is patent. The; mediastinum demonstrates normal heart/pericardium and thoracic aorta. No; adenopathy. Thoracic vertebral bodies are intact.; ; Impression:; 1. Left anterolateral fourth through ninth rib fractures.; 2. Right lower lobe infiltrate compatible with acute pneumonia versus areas of; parenchymal contusion.; 3. 6 mm noncalcified left lower lobe sub pleural nodule. Consider initial; follow-up examination and 3-6 months.; ; ; Signed by; Leonid Hilton MD 10/10/2016 06:22 P; Outcome: 19:26 CT Study completed. ld5 20:41 Discharge ordered by Provider. ar2 21:00 Discharge Assessment: Patient awake, alert and oriented x 3. No cognitive and/or ld5 functional deficits noted. Patient verbalized understanding of disposition instructions. patient administered narcotics - yes. Pt provided with safe discharge. The following High Risk Discharge criteria are identified: None. Discharged to home ambulatory, with significant other. Condition: stable. Discharge instructions given to patient, significant other, Instructed on discharge instructions, follow up and referral plans. medication usage, no driving heavy equipment, incentive spirometer Demonstrated understanding of instructions, medications, Pt was receptive of discharge instructions/ teaching. Prescriptions given X 3, Work note provided to patient. Property :Personal belongings accompany Pt. 21:03 Patient left the ED. ld5 Signatures: Dispatcher [employer] EDMS Alberta Sanders RN RN srm Barnhardt, Gloria, Reg Reg gb Reji Rubio, SHAISTA CERTIFIED ADAPTED PHYSICAL EDUCATOR kb5 Yadira Sanchez RN RN jjr Colello, Joseph jc3 Shaji Naik PA-C PA-C ar2 Ishaan Saenz PA PA btw Dickerson, Laura,RN RN ld5 Tiffany Manzanares,RN RN cjh Andrey Sanchez gr2 Morteza Cummings, CERTIFIED ADAPTED PHYSICAL EDUCATOR CERTIFIED ADAPTED PHYSICAL EDUCATOR Laxmi Crockett RN cj Chart Complete MTDD
--- NOTE | 2016-10-13 10:52 | EDDOCDS ---
Physician Documentation [facility] Name: Jamir Boyd Age: 56 yrs Sex: Male : 1960 Arrival Date: 10/10/2016 Time: 15:28 Bed I4 / M4 Private MD: NO PRIMARY PHYSICIAN, . Disposition: 10/10/16 20:41 Discharged to Home/Self Care. Impression: Multiple fractures of ribs, left side - 4-9, Unspecified bacterial pneumonia - RLL, Hypo-osmolality and hyponatremia - beer potomania. - Condition is Stable. - Discharge Instructions: Hyponatremia, Pneumonia, Adult. - Prescriptions for Amoxicillin 500 mg Oral Capsule - take 1 capsule by ORAL route every 8 hours for 10 days; 30 tablet. Magnolia 5- 325 mg Oral Tablet - take 1 tablet by ORAL route every 6 hours As needed MDD: 4 tabs; 16 tablet. Zithromax 250 mg Oral Tablet - take 1 tablet by ORAL route once daily start tomorrow; 4 tablet. - Medication Reconciliation, Local Pharmacy Hours, Work Release Form - 5 day form. - Follow up: Emergency Department; When: 1 - 2 days; Reason: Recheck today's complaints, Continuance of care. [facility]: [facility]; When: Call to arrange an appointment; Reason: Recheck today's complaints, To establish care. - Problem is new. - Symptoms have improved. Historical: - Allergies: no known allergies; - Home Meds: 1. aspirin 81 mg Oral tab 1 tab once daily (Last dose: 10/10/2016) - PMHx: none; - PSHx: metal plate rt ankle; Tonsillectomy; - Social history: Smoking status: Patient uses tobacco products, current every day smoker. No barriers to communication noted, The patient speaks fluent Armenian, Speaks appropriately for age. - Family history: Not pertinent. - : The pt / caregiver states he / she is not on anticoagulants. Home medication list is obtained from the patient. - Exposure Risk Screening:: None identified. Vital Signs: 10/10 15:30 BP 164 / 97; Pulse 108; Resp 18 S; Temp 97.5(O); Pulse Ox 94% on R/A; Weight 73.48 kg / gr2 162 lbs (M); Height 5 ft. 7 in. (170.18 cm) (M); Pain 8/10; 21:00 BP 156 / 98 LA (man/); Pulse 74; Resp 18; Temp 98; Pulse Ox 94% on R/A; Pain 6/10; ld5 15:30 Body Mass Index 25.37 (73.48 kg, 170.18 cm) gr2 MDM: 15:53 IV Saline Lock ordered. btw 15:54 CBC with Diff Ordered. EDMS 15:54 Complete Comphrensive Metabolic Ordered. EDMS 15:54 ESR Ordered. EDMS 15:54 CRP Ordered. EDMS 15:54 CT Chest With Contrast Ordered. EDMS 16:02 Pulse ox continuous ordered. btw 16:42 Financial registration complete. gjb 16:49 NOTHING BY MOUTH+DIET ordered. EDMS 16:56 [facility] Payment Agreement was scanned into [employer] and attached to record. gjb 17:18 CBC with Diff Reviewed. btw 17:18 ESR Reviewed. btw 17:30 Complete Comphrensive Metabolic Reviewed. btw 17:30 CRP Reviewed. btw 17:50 morphine 4 mg IVP every 30 minutes; Document pain score/vitals after each dose (Hold if btw SBP < 90mmHg) x2 ordered. 18:30 Urine Dip ordered. ar2 18:36 NS 0.9% 1000 ml IV at bolus once ordered. ar2 19:09 cefTRIAXone 1 grams IVPB once over 30 mins; dilute in 50mL of NS or D5W ordered. ar2 19:09 azithromycin 500 mg PO once ordered. ar2 19:09 HYDROcodone-acetaminophen 5 mg-325 mg 1 tabs PO once ordered. ar2 19:09 Call Respiratory ordered. ar2 19:13 Call Respiratory complete. kb5 20:44 HYDROcodone-acetaminophen 4 pack- 5 mg-325 mg 1 packets PO Per package directions; ar2 Dispense with patient. 1 po q4h prn for pain ordered. 10/11 09:56 T-Sheet-- Draft Copy was scanned into [employer] and attached to record. 09:56 Radiology Report was scanned into [employer] and attached to record. Point of Care Testing: Urine Dip: 10/10 18:50 pH: 6; ; Specific [place]: 1.000; Ketones: Moderate; Glucose: Negative; Protein: Trace; cjh Leukocytes: Negative; Nitrite: Negative ; Blood: Non Hemolyzed Trace; Bilirubin: Small (+) ; Urobilinogen: Normal Ranges: Administered Medications: 17:52 Drug: morphine 4 mg [morphine 4 mg/mL intravenous cartridge (1 mL)] Route: IVP; Site: [facility] right antecubital; 18:59 Drug: NS 0.9% 1000 ml Route: IV; Rate: bolus; Site: right antecubital; [facility] 20:48 Follow up: IV Status: Completed infusion; IV Intake: 1000ml ld5 19:25 Drug: cefTRIAXone 1 grams [ceftriaxone 1 gram solution for injection] Route: IVPB; ld5 Infused Over: 30 mins; Site: right antecubital; 20:48 Follow up: IV Status: Completed infusion; IV Intake: 50ml ld5 19:25 Drug: azithromycin 500 mg [azithromycin 250 mg tablet (2 tabs)] Route: PO; ld5 19:25 Drug: HYDROcodone-acetaminophen 1 tabs [hydrocodone 5 mg-acetaminophen 325 mg tablet (1 ld5 tabs)] Route: PO; 21:02 Follow up: Response: Confirmed pt not driving.; No significant change. ld5 21:02 Drug: HYDROcodone-acetaminophen 4 pack- 1 packets [hydrocodone 5 mg-acetaminophen 325 ld5 mg tablet (1 tabs)] {Co-Signature: [facility] (Tiffany Manzanares RN).} Route: PO; 21:02 Follow up: Response: Med's dispensed home ld5 Addendum: 10/13/2016 10:50 Radiology Callback: A certified letter will be sent to the patient / guardian. sd1 Radiology results faxed to primary care physician/provider. GME. Signatures: Dispatcher [employer] Mel Perez MD MD sd1 Alberta Sanders, RN RN [facility] Barnhardt, María, Reg Reg gb [place], Reji, ROLLER STITCHER ROLLER STITCHER kb5 Shaji Naik PA-C PALayo ar2 Ishaan Saenz PA PA btw Dickerson, Laura, RN RN ld5 Laxmi Muniz Jane RN [facility] Tifafny Manzanares RN [facility] The chart was reviewed and I authenticate all verbal orders and agree with the evaluation and treatment provided.Corrections: (The following items were deleted from the chart) 10/10 18:48 18:24 OSMOLALITY, SERUM+LAB ordered. EDMS EDMS Attachments: 16:56 [facility] Payment Agreement gjb 10/11 09:56 T-Sheet-- Draft Copy gb Chart Complete MTDD
--- NOTE | 2016-10-13 10:52 | EDDOCDS ---
Physician Documentation [facility] Name: Jamir Boyd Age: 56 yrs Sex: Male : 1960 Arrival Date: 10/10/2016 Time: 15:28 Bed I4 / M4 Private MD: NO PRIMARY PHYSICIAN, . Disposition: 10/10/16 20:41 Discharged to Home/Self Care. Impression: Multiple fractures of ribs, left side - 4-9, Unspecified bacterial pneumonia - RLL, Hypo-osmolality and hyponatremia - beer potomania. - Condition is Stable. - Discharge Instructions: Hyponatremia, Pneumonia, Adult. - Prescriptions for Amoxicillin 500 mg Oral Capsule - take 1 capsule by ORAL route every 8 hours for 10 days; 30 tablet. [place] 5- 325 mg Oral Tablet - take 1 tablet by ORAL route every 6 hours As needed MDD: 4 tabs; 16 tablet. Zithromax 250 mg Oral Tablet - take 1 tablet by ORAL route once daily start tomorrow; 4 tablet. - Medication Reconciliation, Local Pharmacy Hours, Work Release Form - 5 day form. - Follow up: Emergency Department; When: 1 - 2 days; Reason: Recheck today's complaints, Continuance of care. [facility]; When: Call to arrange an appointment; Reason: Recheck today's complaints, To establish care. - Problem is new. - Symptoms have improved. Historical: - Allergies: no known allergies; - Home Meds: 1. aspirin 81 mg Oral tab 1 tab once daily (Last dose: 10/10/2016) - PMHx: none; - PSHx: metal plate rt ankle; Tonsillectomy; - Social history: Smoking status: Patient uses tobacco products, current every day smoker. No barriers to communication noted, The patient speaks fluent Persian, Speaks appropriately for age. - Family history: Not pertinent. - : The pt / caregiver states he / she is not on anticoagulants. Home medication list is obtained from the patient. - Exposure Risk Screening:: None identified. Vital Signs: 10/10 15:30 BP 164 / 97; Pulse 108; Resp 18 S; Temp 97.5(O); Pulse Ox 94% on R/A; Weight 73.48 kg / gr2 162 lbs (M); Height 5 ft. 7 in. (170.18 cm) (M); Pain 8/10; 21:00 BP 156 / 98 LA (man/); Pulse 74; Resp 18; Temp 98; Pulse Ox 94% on R/A; Pain 6/10; ld5 15:30 Body Mass Index 25.37 (73.48 kg, 170.18 cm) gr2 MDM: 15:53 IV Saline Lock ordered. btw 15:54 CBC with Diff Ordered. EDMS 15:54 Complete Comphrensive Metabolic Ordered. EDMS 15:54 ESR Ordered. EDMS 15:54 CRP Ordered. EDMS 15:54 CT Chest With Contrast Ordered. EDMS 16:02 Pulse ox continuous ordered. btw 16:42 Financial registration complete. gjb 16:49 NOTHING BY MOUTH+DIET ordered. EDMS 16:56 [facility] Payment Agreement was scanned into [facility] and attached to record. gjb 17:18 CBC with Diff Reviewed. btw 17:18 ESR Reviewed. btw 17:30 Complete Comphrensive Metabolic Reviewed. btw 17:30 CRP Reviewed. btw 17:50 morphine 4 mg IVP every 30 minutes; Document pain score/vitals after each dose (Hold if btw SBP < 90mmHg) x2 ordered. 18:30 Urine Dip ordered. ar2 18:36 NS 0.9% 1000 ml IV at bolus once ordered. ar2 19:09 cefTRIAXone 1 grams IVPB once over 30 mins; dilute in 50mL of NS or D5W ordered. ar2 19:09 azithromycin 500 mg PO once ordered. ar2 19:09 HYDROcodone-acetaminophen 5 mg-325 mg 1 tabs PO once ordered. ar2 19:09 Call Respiratory ordered. ar2 19:13 Call Respiratory complete. kb5 20:44 HYDROcodone-acetaminophen 4 pack- 5 mg-325 mg 1 packets PO Per package directions; ar2 Dispense with patient. 1 po q4h prn for pain ordered. 10/11 09:56 T-Sheet-- Draft Copy was scanned into [employer] [facility] and attached to record. 09:56 Radiology Report was scanned into [employer] and attached to record. Point of Care Testing: Urine Dip: 10/10 18:50 pH: 6; ; Specific [place]: 1.000; Ketones: Moderate; Glucose: Negative; Protein: Trace; cjh Leukocytes: Negative; Nitrite: Negative ; Blood: Non Hemolyzed Trace; Bilirubin: Small (+) ; Urobilinogen: Normal Ranges: Administered Medications: 17:52 Drug: morphine 4 mg [morphine 4 mg/mL intravenous cartridge (1 mL)] Route: IVP; Site: [facility] right antecubital; 18:59 Drug: NS 0.9% 1000 ml Route: IV; Rate: bolus; Site: right antecubital; [facility] 20:48 Follow up: IV Status: Completed infusion; IV Intake: 1000ml ld5 19:25 Drug: cefTRIAXone 1 grams [ceftriaxone 1 gram solution for injection] Route: IVPB; ld5 Infused Over: 30 mins; Site: right antecubital; 20:48 Follow up: IV Status: Completed infusion; IV Intake: 50ml ld5 19:25 Drug: azithromycin 500 mg [azithromycin 250 mg tablet (2 tabs)] Route: PO; ld5 19:25 Drug: HYDROcodone-acetaminophen 1 tabs [hydrocodone 5 mg-acetaminophen 325 mg tablet (1 ld5 tabs)] Route: PO; 21:02 Follow up: Response: Confirmed pt not driving.; No significant change. ld5 21:02 Drug: HYDROcodone-acetaminophen 4 pack- 1 packets [hydrocodone 5 mg-acetaminophen 325 ld5 mg tablet (1 tabs)] {Co-Signature: [facility] (Tiffany Manzanares RN).} Route: PO; 21:02 Follow up: Response: Med's dispensed home ld5 Addendum: 10/13/2016 10:50 Radiology Callback: A certified letter will be sent to the patient / guardian. sd1 Radiology results faxed to primary care physician/provider. GME. Signatures: Dispatcher [employer] Mel Perez MD MD sd1 Alberta Sanders, RN RN [facility] Barnhardt, María, Reg Reg gb [place], Reji, MOLD INSPECTOR MOLD INSPECTOR kb5 Shaji Naik PA-C PALayo ar2 Ishaan Saenz PA PA btw Dickerson, Laura, RN RN ld5 Laxmi Muniz Jane RN [facility] Tiffany Manzanares RN [facility] The chart was reviewed and I authenticate all verbal orders and agree with the evaluation and treatment provided.Corrections: (The following items were deleted from the chart) 10/10 18:48 18:24 OSMOLALITY, SERUM+LAB ordered. EDMS EDMS Attachments: 16:56 [facility] [place] Payment Agreement gjb 10/11 09:56 T-Sheet-- Draft Copy gb Chart Complete MTDD
== END 2016-10-10 21:03 | disposition home or self-care (01) ==
LOC: M ED 15:28
DX: S22.42XA Multiple fractures of ribs, left side, initial encounter for closed fracture (principal); J15.9 Unspecified bacterial pneumonia; E87.1 Hypo-osmolality and hyponatremia; Z72.0 Tobacco use; Z79.82 Long term (current) use of aspirin; X58.XXXA Exposure to other specified factors, initial encounter; Y92.019 Unspecified place in single-family (private) house as the place of occurrence of the external cause; Y93.89 Activity, other specified; Y99.9 Unspecified external cause status
CPT/HCPCS: 36415; 71260; 80053; 85025; 85652; 86140; 96365; 96375; 99284; J0696; Q9967

== ENCOUNTER 2022-02-17 17:08 | Emergency (ER) | payer SELFPAY ==
[2022-02-17 18:16] LABS: BASO # 0.1 10^3/uL (0.0-0.2); EOS % 0.7 % (0.0-3.0); HEMATOCRIT 41.7 % (42.0-52.0); LYMPH # 1.4 10^3/uL (1.5-5.0); LYMPH % 23.3 % (24.0-44.0); MEAN CORPUSCULAR HEMOGLOBIN 33.2 pg (27.0-33.0); MEAN CORPUSCULAR HGB CONC 33.6 g/dl (32.0-36.5); MEAN CORPUSCULAR VOLUME 98.8 fl (80.0-96.0); MONO # 0.6 10^3/uL (0.0-0.8); MONO % 9.8 % (2.0-8.0); NEUTROPHILS # 3.8 10^3/uL (1.5-8.5); NEUTROPHILS % 64.7 % (36.0-66.0); PLATELET COUNT, AUTOMATED 163 10^3/uL (150-450); RED BLOOD COUNT 4.22 10^6/uL (4.30-6.10); WHITE BLOOD COUNT 5.9 10^3/uL (4.0-10.0)
[2022-02-17 18:43] LABS: CK-MB VALUE MASS 1.6 NG/ML (<3.6); MB/CK RELATIVE INDEX 1.6 (< OR =4)
[2022-02-17 18:50] LABS: AMPHETAMINES LEVEL URINE NEGATIVE (NEGATIVE); BARBITURATES URINE NEGATIVE (NEGATIVE); BENZODIAZEPINES URINE NEGATIVE (NEGATIVE); CANNABINOIDS URINE POSITIVE (NEGATIVE); COCAINE METABOLITE URINE NEGATIVE (NEGATIVE); METHADONE URINE NEGATIVE (NEGATIVE); OPIATES URINE NEGATIVE (NEGATIVE); PHENCYCLIDINE URINE NEGATIVE (NEGATIVE)
[2022-02-17 18:53] LABS: BLOOD UREA NITROGEN 8 MG/DL (7-18); CALCIUM LEVEL 7.4 MG/DL (8.8-10.2); CARBON DIOXIDE LEVEL 29 MEQ/L (21-32); CHLORIDE LEVEL 107 MEQ/L (98-107); CREATININE FOR GFR 0.65 MG/DL (0.70-1.30); ETHYL ALCOHOL (ETHANOL) 0.354 % (0.000-0.010); FREE T4 0.87 NG/DL (0.76-1.46); GLOMERULAR FILTRATION RATE > 60.0 (>49); GLUCOSE, FASTING 78 MG/DL (70-100); MAGNESIUM LEVEL 2.1 MG/DL (1.8-2.4); POTASSIUM SERUM 3.7 MEQ/L (3.5-5.1); SODIUM LEVEL 141 MEQ/L (136-145)
[2022-02-17 19:30] VITALS: BP 145/78
== END 2022-02-17 20:14 | disposition home or self-care (01) ==
LOC: M ED 17:08
DX: F10.129 Alcohol abuse with intoxication, unspecified (principal); Y90.1 Blood alcohol level of 20-39 mg/100 ml; F17.210 Nicotine dependence, cigarettes, uncomplicated

== ENCOUNTER → 2022-08-04 | Outpatient (REF) | payer OTHER ==
[2022-08-04 17:25] LABS: BACTERIA, URINE SMALL AMOUNT; RBC, URINE 0-1 /hpf (0-3); SQUAMOUS EPITHELIAL CELL URINE SMALL AMOUNT /hpf (SMALL AMT)
[2022-08-04 17:26] LABS: AMORPHOUS SEDIMENT, URINE MOD AMOUNT (NEGATIVE); HYALINE CAST, URINE TNTC /lpf (0-1); MUCUS, URINE MOD AMOUNT (NEGATIVE)
[2022-08-04 17:26] LABS: ALBUMIN 2.8 G/DL (3.2-5.2); ALKALINE PHOSPHATASE 276 U/L (46-116); ALT/SGPT 70 U/L (7.0-40); AST/SGOT 281 U/L (<34); BILIRUBIN,TOTAL 1.2 MG/DL (0.3-1.2); BLOOD UREA NITROGEN 5 MG/DL (9-23); CALCIUM LEVEL 8.4 MG/DL (8.3-10.6); CARBON DIOXIDE LEVEL 31 MMOL/L (20-31); CHLORIDE LEVEL 98 MMOL/L (98-107); CHOLESTEROL LEVEL 190 MG/DL (<200); CHOLESTEROL RISK RATIO 2.62 (<5); CREATININE FOR GFR 0.54 MG/DL (0.70-1.30); GLOMERULAR FILTRATION RATE > 60.0 (>49); GLUCOSE, FASTING 112 MG/DL (74-106); HDL CHOLESTEROL 72.5 MG/DL (>40); LDL CHOLESTEROL 99.5 MG/DL (<100); NON-HDL-C 118 MG/DL; POTASSIUM SERUM 3.4 MMOL/L (3.5-5.1); SODIUM LEVEL 137 MMOL/L (136-145); TOTAL PROTEIN 6.5 G/DL (5.7-8.2); TRIGLYCERIDES LEVEL 90 MG/DL (<150)
[2022-08-04 17:29] LABS: FREE T4 1.04 NG/DL (0.89-1.76); THYROID STIMULATING HORMONE 2.634 uIU/ML (0.55-4.78); TOTAL 25(OH) VITAMIN D 12.1 NG/ML (20.0-100.0)
[2022-08-04 17:44] LABS: BASO % 0.5 % (0.0-1.0); EOS % 0.1 % (0.0-3.0); HEMATOCRIT 37.1 % (42.0-52.0); HEMOGLOBIN 12.8 g/dl (13.5-17.5); LYMPH % 12.6 % (24.0-44.0); MEAN CORPUSCULAR HEMOGLOBIN 40.6 pg (27.0-33.0); MEAN CORPUSCULAR HGB CONC 34.5 g/dl (32.0-36.5); MONO # 0.6 10^3/uL (0.0-0.8); MONO % 7.7 % (2.0-8.0); NEUTROPHILS # 5.9 10^3/uL (1.5-8.5); NEUTROPHILS % 78.6 % (36.0-66.0); PLATELET COUNT, AUTOMATED 182 10^3/uL (150-450); RED BLOOD COUNT 3.15 10^6/uL (4.30-6.10); WHITE BLOOD COUNT 7.5 10^3/uL (4.0-10.0)
[2022-08-04 18:05] LABS: MEAN CORPUSCULAR VOLUME 117.8 fl (80.0-96.0)
[2022-08-04 19:09] LABS: STOMATOCYTES 1+
[2022-08-04 19:10] LABS: HEMOGLOBIN A1c 4.7 % (4.0-6.0); PLATELET ESTIMATE NORMAL (NORMAL)
== END ==
LOC: M LAB REF 16:11
PROVIDERS: ATTEND Nurse Practitioner Family
DX: R80.9 Proteinuria, unspecified (principal); Z13.228 Encounter for screening for other metabolic disorders

== ENCOUNTER → 2022-08-13 | Outpatient (REF) | payer OTHER ==
[2022-08-13 16:49] LABS: ALBUMIN 2.9 G/DL (3.2-5.2); ALKALINE PHOSPHATASE 261 U/L (46-116); ALT/SGPT 56 U/L (7.0-40); AST/SGOT 182 U/L (<34); BILIRUBIN,DIRECT 0.7 MG/DL (<0.4); BILIRUBIN,TOTAL 1.3 MG/DL (0.3-1.2); BLOOD UREA NITROGEN 6 MG/DL (9-23); CALCIUM LEVEL 8.4 MG/DL (8.3-10.6); CARBON DIOXIDE LEVEL 30 MMOL/L (20-31); CHLORIDE LEVEL 94 MMOL/L (98-107); CREATININE FOR GFR 0.58 MG/DL (0.70-1.30); GLOMERULAR FILTRATION RATE > 60.0 (>49); GLUCOSE, FASTING 123 MG/DL (74-106); POTASSIUM SERUM 3.8 MMOL/L (3.5-5.1); SODIUM LEVEL 136 MMOL/L (136-145); TOTAL PROTEIN 6.5 G/DL (5.7-8.2)
[2022-08-13 16:52] LABS: FOLATE 1.9 NG/ML (>5.4); VITAMIN B12 LEVEL 701 PG/ML (211-911)
[2022-08-13 17:24] LABS: INR 0.98; PROTHROMBIN TIME 13.2 SECONDS (12.5-14.5)
[2022-08-13 19:39] LABS: RBC, URINE 0-1 /hpf (0-3); SQUAMOUS EPITHELIAL CELL URINE SMALL AMOUNT /hpf (SMALL AMT)
[2022-08-13 19:40] LABS: BACTERIA, URINE NONE SEEN; HYALINE CAST, URINE NONE SEEN /lpf (0-1); MUCUS, URINE LARGE AMOUNT (NEGATIVE)
[2022-08-13 19:41] LABS: AMORPHOUS SEDIMENT, URINE SMALL AMOUNT (NEGATIVE); CALCIUM OXALATE CRYSTALS,URINE MOD AMOUNT /hpf
== END ==
LOC: M LAB REF 16:17
PROVIDERS: ATTEND Nurse Practitioner Family
DX: R89.9 Unspecified abnormal finding in specimens from other organs, systems and tissues (principal)

== ENCOUNTER → 2022-08-26 | Outpatient (CLI) | payer OTHER | LOC: M RAD 11:04 | PROVIDERS: ATTEND Nurse Practitioner Family | DX: K42.9 Umbilical hernia without obstruction or gangrene (principal) ==

== ENCOUNTER → 2022-09-02 | Outpatient (REF) | payer OTHER | LOC: M LAB REF 16:31 | PROVIDERS: ATTEND Nurse Practitioner Family | DX: R68.81 Early satiety (principal) ==

== ENCOUNTER → 2022-10-03 | Outpatient (REF) | payer OTHER ==
[2022-10-03 16:50] LABS: BLOOD UREA NITROGEN 9 MG/DL (9-23); CALCIUM LEVEL 8.7 MG/DL (8.3-10.6); CARBON DIOXIDE LEVEL 32 MMOL/L (20-31); CHLORIDE LEVEL 94 MMOL/L (98-107); CREATININE FOR GFR 0.63 MG/DL (0.70-1.30); GLOMERULAR FILTRATION RATE > 60.0 (>49); GLUCOSE, FASTING 123 MG/DL (74-106); SODIUM LEVEL 134 MMOL/L (136-145)
[2022-10-03 16:52] LABS: URIC ACID 3.9 MG/DL (3.7-9.2)
[2022-10-03 17:23] LABS: BASO % 0.4 % (0.0-1.0); EOS % 0.3 % (0.0-3.0); HEMATOCRIT 33.7 % (42.0-52.0); HEMOGLOBIN 11.9 g/dl (13.5-17.5); LYMPH # 1.2 10^3/uL (1.5-5.0); LYMPH % 11.9 % (24.0-44.0); MEAN CORPUSCULAR HEMOGLOBIN 44.7 pg (27.0-33.0); MEAN CORPUSCULAR HGB CONC 35.3 g/dl (32.0-36.5); MONO # 0.9 10^3/uL (0.0-0.8); MONO % 8.9 % (2.0-8.0); NEUTROPHILS # 7.8 10^3/uL (1.5-8.5); NEUTROPHILS % 78.1 % (36.0-66.0); PLATELET COUNT, AUTOMATED 204 10^3/uL (150-450); RED BLOOD COUNT 2.66 10^6/uL (4.30-6.10)
[2022-10-03 17:31] LABS: MEAN CORPUSCULAR VOLUME 126.7 fl (80.0-96.0)
[2022-10-03 17:52] LABS: PLATELET ESTIMATE NORMAL (NORMAL)
== END ==
LOC: M LAB REF 16:26
PROVIDERS: ATTEND Nurse Practitioner Family
DX: R97.0 Elevated carcinoembryonic antigen [CEA] (principal)

== ENCOUNTER → 2022-10-06 | Outpatient (CLI) | payer OTHER ==
[~2022-10-06] MED LIST: GASTROGRAFIN SOLUTION 30ML As Ordered ONE; ISOVUE-370 76% 100ML VIAL As Ordered ONE
== END ==
LOC: M RAD 11:19
PROVIDERS: ATTEND Nurse Practitioner Family
DX: R59.0 Localized enlarged lymph nodes (principal)

== ENCOUNTER 2022-11-03 18:05 | Emergency (ER) | payer OTHER ==
[~2022-11-03] VITALS: Ht 170.2 cm; Wt 97.0 kg
[~2022-11-03 18:05] MED LIST changes: +ALBU8.5H; +D 101000; +FAMO20TA5; +FOLI1TAB11; -GASTROGRAFIN SOLUTION 30ML As Ordered ONE; +HYDR12.55; -ISOVUE-370 76% 100ML VIAL As Ordered ONE; +LISI10TA22; +VITA100093
[2022-11-03 18:44] LABS: BASO # 0.1 10^3/uL (0.0-0.2); BASO % 0.7 % (0.0-1.0); EOS # 0.1 10^3/uL (0.0-0.5); EOS % 1.4 % (0.0-3.0); HEMATOCRIT 31.6 % (42.0-52.0); HEMOGLOBIN 11.2 g/dl (13.5-17.5); LYMPH # 1.9 10^3/uL (1.5-5.0); LYMPH % 19.2 % (24.0-44.0); MEAN CORPUSCULAR HEMOGLOBIN 40.9 pg (27.0-33.0); MEAN CORPUSCULAR HGB CONC 35.4 g/dl (32.0-36.5); MEAN CORPUSCULAR VOLUME 115.3 fl (80.0-96.0); MONO # 0.7 10^3/uL (0.0-0.8); MONO % 7.4 % (2.0-8.0); NEUTROPHILS % 70.8 % (36.0-66.0); PLATELET COUNT, AUTOMATED 253 10^3/uL (150-450); RED BLOOD COUNT 2.74 10^6/uL (4.30-6.10); WHITE BLOOD COUNT 9.9 10^3/uL (4.0-10.0)
[2022-11-03 19:10] LABS: BLOOD UREA NITROGEN 11 MG/DL (9-23); CALCIUM LEVEL 8.1 MG/DL (8.3-10.6); CARBON DIOXIDE LEVEL 25 MMOL/L (20-31); CHLORIDE LEVEL 92 MMOL/L (98-107); CREATININE FOR GFR 0.83 MG/DL (0.70-1.30); GLOMERULAR FILTRATION RATE > 60.0 (>49); GLUCOSE, FASTING 96 MG/DL (74-106); POTASSIUM SERUM 3.6 MMOL/L (3.5-5.1); SODIUM LEVEL 128 MMOL/L (136-145)
[2022-11-03 19:19] LABS: PLATELET ESTIMATE NORMAL (NORMAL)
[2022-11-03 20:32] LABS: INR 0.98; PROTHROMBIN TIME 13.2 SECONDS (12.5-14.5)
[2022-11-03 20:33] LABS: PARTIAL THROMBOPLASTIN TIME 31.6 SECONDS (24.8-34.2)
[2022-11-03 20:43] LABS: ETHYL ALCOHOL (ETHANOL) 0.174 % (0.000-0.010)
[2022-11-03 20:48] LABS: THYROID STIMULATING HORMONE 1.932 uIU/ML (0.55-4.78)
[2022-11-03 20:50] LABS: RSV AMPLIFICATION NEGATIVE (NEGATIVE)
[2022-11-03 21:50] VITALS: BP 123/72
[2022-11-03 22:08] LABS: ALBUMIN 2.6 G/DL (3.2-5.2); BILIRUBIN,DIRECT 0.2 MG/DL (<0.4); BILIRUBIN,TOTAL 0.4 MG/DL (0.3-1.2); MAGNESIUM LEVEL 1.8 MG/DL (1.8-2.4); TOTAL PROTEIN 5.8 G/DL (5.7-8.2)
== END 2022-11-03 21:59 | disposition home or self-care (01) ==
LOC: EDBD 18:05 → M ED 18:05
DX: S01.81XA Laceration without foreign body of other part of head, initial encounter (principal); F10.129 Alcohol abuse with intoxication, unspecified; W01.10XA Fall on same level from slipping, tripping and stumbling with subsequent striking against unspecified object, initial encounter; I10 Essential (primary) hypertension; K21.9 Gastro-esophageal reflux disease without esophagitis; F10.10 Alcohol abuse, uncomplicated; Y92.009 Unspecified place in unspecified non-institutional (private) residence as the place of occurrence of the external cause; Z79.52 Long term (current) use of systemic steroids; Z79.811 Long term (current) use of aromatase inhibitors; Z79.899 Other long term (current) drug therapy

== ENCOUNTER → 2022-11-05 | Outpatient (CLI) | payer OTHER | LOC: M RAD 09:11 | PROVIDERS: ATTEND Internal Medicine Gastroenterology | DX: R94.5 Abnormal results of liver function studies (principal) ==

== ENCOUNTER 2022-12-02 11:03 | Day surgery (SDC) | payer OTHER ==
[~2022-12-02] VITALS: Ht 170.2 cm; Wt 92.3 kg
[~2022-12-02 11:03] MED LIST changes: -ALBU8.5H; +ALBU8.5H INH; +B-1100TA2 PO; -D 101000; +D 101000 PO; -FAMO20TA5; +FAMO20TA5 PO; -FOLI1TAB11; +FOLI1TAB11 PO; -HYDR12.55; +HYDR12.55 PO; -LISI10TA22; +LISI10TA22 PO; +NS 1,000 ML IV ONE; +STIO1AER INH
[2022-12-02] MEDS ORDERED: propofoL 200 MG/20 ML VIAL As Ordered ONE ×3 (12:45→13:21)
[2022-12-02 13:50] VITALS: BP 152/72
== END 2022-12-02 14:20 | disposition home or self-care (01) ==
LOC: M OPP 11:03
PROVIDERS: ATTEND Internal Medicine Gastroenterology
DX: Z12.11 Encounter for screening for malignant neoplasm of colon (principal); D12.6 Benign neoplasm of colon, unspecified; K64.4 Residual hemorrhoidal skin tags; K64.8 Other hemorrhoids; K57.30 Diverticulosis of large intestine without perforation or abscess without bleeding; K21.00 Gastro-esophageal reflux disease with esophagitis, without bleeding; K29.70 Gastritis, unspecified, without bleeding; Q39.4 Esophageal web; K74.60 Unspecified cirrhosis of liver; J44.9 Chronic obstructive pulmonary disease, unspecified; Z79.51 Long term (current) use of inhaled steroids; Z79.899 Other long term (current) drug therapy; F17.200 Nicotine dependence, unspecified, uncomplicated

== ENCOUNTER → 2022-12-10 | Outpatient (CLI) | payer OTHER ==
[~2022-12-10] MED LIST changes: -NS 1,000 ML IV ONE
== END ==
LOC: M WUC 11:16
PROVIDERS: ATTEND Nurse Practitioner Family
DX: R60.0 Localized edema (principal); M51.36 Other intervertebral disc degeneration, lumbar region

== ENCOUNTER → 2022-12-12 | Outpatient (REF) | payer OTHER ==
[2022-12-12 17:37] LABS: BLOOD UREA NITROGEN < 5 MG/DL (9-23); CALCIUM LEVEL 8.6 MG/DL (8.3-10.6); CARBON DIOXIDE LEVEL 31 MMOL/L (20-31); CHLORIDE LEVEL 99 MMOL/L (98-107); CREATININE FOR GFR 0.62 MG/DL (0.70-1.30); GLOMERULAR FILTRATION RATE > 60.0 (>49); GLUCOSE, FASTING 93 MG/DL (74-106); POTASSIUM SERUM 3.8 MMOL/L (3.5-5.1); SODIUM LEVEL 136 MMOL/L (136-145)
== END ==
LOC: M LAB REF 16:20
PROVIDERS: ATTEND Nurse Practitioner Family
DX: E87.1 Hypo-osmolality and hyponatremia (principal)

== ENCOUNTER 2023-04-06 10:53 | Inpatient (IN) | payer OTHER ==
[~2023-04-06] VITALS: Ht 170.2 cm; Wt 102.7 kg
[2023-04-06 13:06] LABS: BASO % 0.2 % (0.0-1.0); EOS % 0.2 % (0.0-3.0); HEMATOCRIT 28.3 % (42.0-52.0); HEMOGLOBIN 9.8 g/dl (13.5-17.5); LYMPH # 0.9 10^3/uL (1.5-5.0); LYMPH % 9.1 % (24.0-44.0); MEAN CORPUSCULAR HEMOGLOBIN 35.1 pg (27.0-33.0); MEAN CORPUSCULAR HGB CONC 34.6 g/dl (32.0-36.5); MEAN CORPUSCULAR VOLUME 101.4 fl (80.0-96.0); MONO # 1.1 10^3/uL (0.0-0.8); MONO % 11.6 % (2.0-8.0); NEUTROPHILS # 7.7 10^3/uL (1.5-8.5); NEUTROPHILS % 78.3 % (36.0-66.0); PLATELET COUNT, AUTOMATED 235 10^3/uL (150-450); RED BLOOD COUNT 2.79 10^6/uL (4.30-6.10); WHITE BLOOD COUNT 9.8 10^3/uL (4.0-10.0)
[2023-04-06 13:38] LABS: BLOOD UREA NITROGEN 7 MG/DL (9-23); CALCIUM LEVEL 7.7 MG/DL (8.3-10.6); CARBON DIOXIDE LEVEL 34 MMOL/L (20-31); CHLORIDE LEVEL 91 MMOL/L (98-107); CREATININE FOR GFR 0.76 MG/DL (0.70-1.30); GLOMERULAR FILTRATION RATE > 60.0 (>49); GLUCOSE, FASTING 100 MG/DL (74-106); POTASSIUM SERUM 2.6 MMOL/L (3.5-5.1); SODIUM LEVEL 133 MMOL/L (136-145)
[2023-04-06] MEDS ORDERED: POTASSIUM CHLORIDE 10MEQ SR TABLET PO ONE (14:25)
[2023-04-06] MEDS ORDERED: KCL 10MEQ/100ML SWI (KRUN) 10 MEQ in IV 1 EA IV ONE (14:25)
[2023-04-06] MEDS ORDERED: FUROSEMIDE 40MG/4ML VIAL IV ONE (14:30)
[2023-04-06] MEDS ORDERED: ISOVUE-370 76% 100ML VIAL As Ordered ONE (14:43)
[2023-04-06 15:07] LABS: ALKALINE PHOSPHATASE 244 U/L (46-116); ALT/SGPT 17 U/L (7.0-40); AST/SGOT 48 U/L (<34); BILIRUBIN,DIRECT 0.9 MG/DL (<0.4); BILIRUBIN,TOTAL 1.3 MG/DL (0.3-1.2); MAGNESIUM LEVEL 1.4 MG/DL (1.8-2.4); TOTAL PROTEIN 5.7 G/DL (5.7-8.2)
[2023-04-06] MEDS ORDERED: LORazepam 2 MG TAB PO PRN (15:30)
[2023-04-06 15:44] LABS: RSV AMPLIFICATION NEGATIVE (NEGATIVE)
[2023-04-06] MEDS: THIAMINE 100 MG TAB PO SCH (16:21)
[2023-04-06] MEDS: POTASSIUM CHLORIDE 10% LIQ 20MEQ/15ML UDC PO SCH ×2 (16:21→17:22)
[2023-04-06] MEDS ORDERED: HOME MED LIST COMPLETE! XX SCH ×3 (16:30→19:55)
[2023-04-06] MEDS ORDERED: PANT-23 PO (17:39)
[2023-04-06] MEDS ORDERED: FURO20TA2 PO (17:39)
[2023-04-06 18:01] LABS: INR 1.15; PROTHROMBIN TIME 14.3 SECONDS (12.5-14.5)
[2023-04-06 18:04] LABS: BLOOD UREA NITROGEN 7 MG/DL (9-23); CALCIUM LEVEL 7.9 MG/DL (8.3-10.6); CARBON DIOXIDE LEVEL 31 MMOL/L (20-31); CHLORIDE LEVEL 91 MMOL/L (98-107); CREATININE FOR GFR 0.74 MG/DL (0.70-1.30); GLOMERULAR FILTRATION RATE > 60.0 (>49); GLUCOSE, FASTING 97 MG/DL (74-106); IRON (FE) 50 UG/DL (65-175); PERCENT SATURATION 26.6 % (19.7-50.0); POTASSIUM SERUM 3.3 MMOL/L (3.5-5.1); SODIUM LEVEL 132 MMOL/L (136-145); TOTAL IRON BINDING CAPACITY 188 UG/DL (250-425)
[2023-04-06 18:07] LABS: VITAMIN B12 LEVEL 644 PG/ML (211-911)
[2023-04-06 18:30] LABS: HIV 1&2 SCREEN NEGATIVE (NEGATIVE)
[2023-04-06 18:38] LABS: HEPATITIS C VIRUS ABY INDEX 0.14 INDEX (<0.8)
[2023-04-06 18:39] LABS: FOLATE > 24.00 NG/ML (>5.4); HEPATITIS B CORE ANTIBODY IGM NEGATIVE (NEGATIVE)
[2023-04-06 20:18] VITALS: BP 142/68; TEMP 98.6; O2SAT 95
[2023-04-06 21:15] VITALS: BP 142/68
[2023-04-06] MEDS: PANTOPRAZOLE 40MG VIAL IV SCH (21:18)
[2023-04-06 21:57] VITALS: BP 122/68; TEMP 97.3; O2SAT 99
[2023-04-06] MEDS ORDERED: ALBUTEROL 90 MCG/ACT 8GM HFA INHALER INH PRN (22:00)
[2023-04-06] MEDS ORDERED: POTASSIUM CHLORIDE 10MEQ SR TABLET PO STA (22:06)
[2023-04-07 02:00] VITALS: BP 128/72; TEMP 97.2; O2SAT 96
[2023-04-07 05:45] VITALS: BP 110/72; TEMP 97.7; O2SAT 95
[2023-04-07 06:44] LABS: BASO % 0.3 % (0.0-1.0); EOS # 0.1 10^3/uL (0.0-0.5); EOS % 0.8 % (0.0-3.0); HEMATOCRIT 25.3 % (42.0-52.0); HEMOGLOBIN 8.8 g/dl (13.5-17.5); LYMPH # 1.2 10^3/uL (1.5-5.0); LYMPH % 12.5 % (24.0-44.0); MEAN CORPUSCULAR HEMOGLOBIN 35.8 pg (27.0-33.0); MEAN CORPUSCULAR HGB CONC 34.8 g/dl (32.0-36.5); MEAN CORPUSCULAR VOLUME 102.8 fl (80.0-96.0); MONO # 1.1 10^3/uL (0.0-0.8); MONO % 11.7 % (2.0-8.0); NEUTROPHILS # 6.8 10^3/uL (1.5-8.5); NEUTROPHILS % 73.9 % (36.0-66.0); PLATELET COUNT, AUTOMATED 208 10^3/uL (150-450); RED BLOOD COUNT 2.46 10^6/uL (4.30-6.10); WHITE BLOOD COUNT 9.2 10^3/uL (4.0-10.0)
[2023-04-07 07:15] LABS: ALBUMIN 1.8 G/DL (3.2-5.2); ALKALINE PHOSPHATASE 215 U/L (46-116); ALT/SGPT 15 U/L (7.0-40); AST/SGOT 41 U/L (<34); BLOOD UREA NITROGEN 7 MG/DL (9-23); CALCIUM LEVEL 7.7 MG/DL (8.3-10.6); CARBON DIOXIDE LEVEL 34 MMOL/L (20-31); CHLORIDE LEVEL 93 MMOL/L (98-107); CREATININE FOR GFR 0.79 MG/DL (0.70-1.30); GLOMERULAR FILTRATION RATE > 60.0 (>49); GLUCOSE, FASTING 93 MG/DL (74-106); MAGNESIUM LEVEL 1.4 MG/DL (1.8-2.4); POTASSIUM SERUM 3.8 MMOL/L (3.5-5.1); SODIUM LEVEL 133 MMOL/L (136-145)
[2023-04-07] MEDS: TIOTROPIUM INHALER/CAPSULE (SPIRIVA) INH SCH (07:36)
[2023-04-07] MEDS: FORMOTEROL FUMARATE 20 MCG/2 ML INHALATION SOLUTION (PERFOROMIST) INH SCH (07:36)
[2023-04-07] MEDS: FOLIC ACID 1MG TAB PO SCH (08:38)
[2023-04-07] MEDS: PANTOPRAZOLE 40MG VIAL IV SCH ×2 (08:38→21:48)
[2023-04-07] MEDS: THIAMINE 100 MG TAB PO SCH ×2 (08:38→21:48)
[2023-04-07] MEDS: MULTIVITAMINS/MINERALS THERAP 1 TAB PO SCH (08:38)
[2023-04-07 10:32] VITALS: BP 110/72
[2023-04-07 12:53] LABS: APPEARANCE, BODY FLUID CLEAR (CLEAR); ASCITES FL COLOR YELLOW (COLORLESS); SOURCE, BODY FLUID ASCITES
[2023-04-07] MEDS: SPIRONOLACTONE 50 MG TAB PO SCH (13:02)
[2023-04-07] MEDS: FUROSEMIDE 20MG/2ML VIAL IV SCH (13:03)
[2023-04-07 13:08] LABS: SOURCE, BODY FLUID ALBUMIN ASCITES
[2023-04-07 13:13] LABS: SOURCE, BODY FLUID GLUCOSE ASCITES
[2023-04-07 13:15] LABS: SOURCE, BODY FLUID TOT PROTEIN ASCITES; TOTAL PROTEIN, BODY FLUID < 2.0 G/DL (NOT ESTABLISHED)
[2023-04-07 14:00] VITALS: BP 122/62; TEMP 98.3; O2SAT 95
[2023-04-07 19:50] VITALS: BP 122/84; TEMP 97.5; O2SAT 94
[2023-04-08 06:29] VITALS: BP 99/57; TEMP 98.2; O2SAT 93
[2023-04-08 06:34] LABS: BASO % 0.2 % (0.0-1.0); EOS # 0.1 10^3/uL (0.0-0.5); EOS % 0.7 % (0.0-3.0); HEMATOCRIT 27.9 % (42.0-52.0); HEMOGLOBIN 9.5 g/dl (13.5-17.5); LYMPH % 12.2 % (24.0-44.0); MEAN CORPUSCULAR HEMOGLOBIN 35.1 pg (27.0-33.0); MEAN CORPUSCULAR HGB CONC 34.1 g/dl (32.0-36.5); MONO # 0.9 10^3/uL (0.0-0.8); MONO % 11.1 % (2.0-8.0); NEUTROPHILS # 6.2 10^3/uL (1.5-8.5); NEUTROPHILS % 75.2 % (36.0-66.0); PLATELET COUNT, AUTOMATED 214 10^3/uL (150-450); RED BLOOD COUNT 2.71 10^6/uL (4.30-6.10); WHITE BLOOD COUNT 8.3 10^3/uL (4.0-10.0)
[2023-04-08 07:05] LABS: ALBUMIN 1.7 G/DL (3.2-5.2); ALKALINE PHOSPHATASE 209 U/L (46-116); ALT/SGPT 15 U/L (7.0-40); AST/SGOT 39 U/L (<34); BILIRUBIN,TOTAL 0.9 MG/DL (0.3-1.2); BLOOD UREA NITROGEN 7 MG/DL (9-23); CALCIUM LEVEL 7.5 MG/DL (8.3-10.6); CARBON DIOXIDE LEVEL 33 MMOL/L (20-31); CHLORIDE LEVEL 94 MMOL/L (98-107); CREATININE FOR GFR 0.77 MG/DL (0.70-1.30); GLOMERULAR FILTRATION RATE > 60.0 (>49); GLUCOSE, FASTING 124 MG/DL (74-106); POTASSIUM SERUM 3.6 MMOL/L (3.5-5.1); SODIUM LEVEL 131 MMOL/L (136-145); TOTAL PROTEIN 4.9 G/DL (5.7-8.2)
[2023-04-08] MEDS: TIOTROPIUM INHALER/CAPSULE (SPIRIVA) INH SCH (07:22)
[2023-04-08] MEDS: FORMOTEROL FUMARATE 20 MCG/2 ML INHALATION SOLUTION (PERFOROMIST) INH SCH (07:22)
[2023-04-08 08:01] LABS: MAGNESIUM LEVEL 1.4 MG/DL (1.8-2.4)
[2023-04-08] MEDS: SPIRONOLACTONE 50 MG TAB PO SCH (08:55)
[2023-04-08] MEDS: FOLIC ACID 1MG TAB PO SCH (09:00)
[2023-04-08] MEDS: THIAMINE 100 MG TAB PO SCH (09:00)
[2023-04-08] MEDS: PANTOPRAZOLE 40MG VIAL IV SCH (09:00)
[2023-04-08] MEDS: MULTIVITAMINS/MINERALS THERAP 1 TAB PO SCH (09:00)
[2023-04-08] MEDS: FUROSEMIDE 20MG/2ML VIAL IV SCH (09:00)
[2023-04-08 10:00] VITALS: BP 118/73; TEMP 97.7; O2SAT 95
[2023-04-08] MEDS: MAG SULF 1GM/100ML (MAG RUN) 1 GM in IV 1 EA IV SCH ×3 (10:00→12:00)
[2023-04-08 10:09] VITALS: BP 90/60
[2023-04-08 10:30] VITALS: BP 118/72
[2023-04-08] MEDS ORDERED: MAGN400T35 PO (12:18)
[2023-04-08] MEDS ORDERED: POTA-151 PO (12:18)
[2023-04-08] MEDS ORDERED: ALDA50TA2 PO (12:18)
[2023-04-08] MEDS ORDERED: FURO40TA2 PO (12:18)
[2023-04-08] MEDS ORDERED: MAGNESIUM OXIDE 400MG TAB (MAG-OX) PO ONE (14:00)
== END 2023-04-08 15:10 | disposition home or self-care (01) | DRG 280 ==
LOC: M ED 10:53 → M ED INP 15:36 → M MS5PR 21:56
PROVIDERS: ADMIT Student in an Organized Health Care Education/Training Program; ATTEND Student in an Organized Health Care Education/Training Program
PROC: 0W9G3ZZ Drainage of Peritoneal Cavity, Percutaneous Approach (ICD-10-PCS; principal; 2023-04-07 11:19)
DX: K70.31 Alcoholic cirrhosis of liver with ascites (principal); D53.9 Nutritional anemia, unspecified; G62.9 Polyneuropathy, unspecified; K21.9 Gastro-esophageal reflux disease without esophagitis; I10 Essential (primary) hypertension; E83.42 Hypomagnesemia; E87.70 Fluid overload, unspecified; J44.9 Chronic obstructive pulmonary disease, unspecified; E87.6 Hypokalemia; F10.10 Alcohol abuse, uncomplicated; F17.210 Nicotine dependence, cigarettes, uncomplicated; R26.89 Other abnormalities of gait and mobility; E87.1 Hypo-osmolality and hyponatremia; Z20.822 Contact with and (suspected) exposure to COVID-19; Z71.6 Tobacco abuse counseling; Z79.899 Other long term (current) drug therapy

== ENCOUNTER → 2023-04-14 | Outpatient (REF) | payer OTHER ==
[~2023-04-14] MED LIST changes: +ALDA50TA2 PO; +FURO20TA2 PO; +FURO40TA2 PO; +MAGN400T35 PO; +PANT-23 PO; +POTA-151 PO
[2023-04-15 12:54] LABS: BASO % 0.4 % (0.0-1.0); EOS # 0.1 10^3/uL (0.0-0.5); EOS % 0.6 % (0.0-3.0); HEMATOCRIT 30.3 % (42.0-52.0); HEMOGLOBIN 9.9 g/dl (13.5-17.5); LYMPH # 1.3 10^3/uL (1.5-5.0); LYMPH % 12.3 % (24.0-44.0); MEAN CORPUSCULAR HGB CONC 32.7 g/dl (32.0-36.5); MEAN CORPUSCULAR VOLUME 107.1 fl (80.0-96.0); MONO # 1.3 10^3/uL (0.0-0.8); MONO % 11.9 % (2.0-8.0); NEUTROPHILS # 7.8 10^3/uL (1.5-8.5); NEUTROPHILS % 74.4 % (36.0-66.0); PLATELET COUNT, AUTOMATED 276 10^3/uL (150-450); RED BLOOD COUNT 2.83 10^6/uL (4.30-6.10); WHITE BLOOD COUNT 10.5 10^3/uL (4.0-10.0)
[2023-04-15 13:18] LABS: ALBUMIN 2.1 G/DL (3.2-5.2); ALKALINE PHOSPHATASE 205 U/L (46-116); ALT/SGPT 17 U/L (7.0-40); AST/SGOT 31 U/L (<34); BILIRUBIN,TOTAL 0.7 MG/DL (0.3-1.2); BLOOD UREA NITROGEN 15 MG/DL (9-23); CALCIUM LEVEL 8.5 MG/DL (8.3-10.6); CARBON DIOXIDE LEVEL 31 MMOL/L (20-31); CHLORIDE LEVEL 97 MMOL/L (98-107); CREATININE FOR GFR 1.09 MG/DL (0.70-1.30); GLOMERULAR FILTRATION RATE > 60.0 (>49); GLUCOSE, FASTING 95 MG/DL (74-106); MAGNESIUM LEVEL 1.8 MG/DL (1.8-2.4); POTASSIUM SERUM 5.1 MMOL/L (3.5-5.1); SODIUM LEVEL 133 MMOL/L (136-145); TOTAL PROTEIN 5.7 G/DL (5.7-8.2)
== END ==
LOC: M LAB REF 11:47
PROVIDERS: ATTEND Nurse Practitioner Family
DX: Z13.228 Encounter for screening for other metabolic disorders (principal)

== ENCOUNTER → 2024-10-05 | Outpatient (CLI) | payer MEDICARE, OTHER ==
[2024-10-05 16:00] LABS: BASO # 0.1 10^3/uL (0.0-0.2); BASO % 0.9 % (0.0-1.0); EOS # 0.1 10^3/uL (0.0-0.5); EOS % 0.9 % (0.0-3.0); HEMATOCRIT 42.5 % (42.0-52.0); HEMOGLOBIN 14.3 g/dl (13.5-17.5); LYMPH # 1.3 10^3/uL (1.5-5.0); LYMPH % 17.2 % (24.0-44.0); MEAN CORPUSCULAR HEMOGLOBIN 31.1 pg (27.0-33.0); MEAN CORPUSCULAR HGB CONC 33.6 g/dl (32.0-36.5); MEAN CORPUSCULAR VOLUME 92.4 fl (80.0-96.0); MONO # 0.8 10^3/uL (0.0-0.8); MONO % 10.2 % (2.0-8.0); NEUTROPHILS # 5.3 10^3/uL (1.5-8.5); NEUTROPHILS % 70.3 % (36.0-66.0); PLATELET COUNT, AUTOMATED 243 10^3/uL (150-450); WHITE BLOOD COUNT 7.6 10^3/uL (4.0-10.0)
[2024-10-05 16:14] LABS: ALBUMIN 3.7 G/DL (3.2-5.2); ALKALINE PHOSPHATASE 102 U/L (40-129); ALT/SGPT 20 U/L (7.0-40); AST/SGOT 25 U/L (<34); BILIRUBIN,TOTAL 0.7 MG/DL (0.3-1.2); BLOOD UREA NITROGEN 15 MG/DL (9-23); CALCIUM LEVEL 9.5 MG/DL (8.3-10.6); CARBON DIOXIDE LEVEL 29 MMOL/L (20-31); CHLORIDE LEVEL 95 MMOL/L (98-107); CREATININE FOR GFR 0.97 MG/DL (0.70-1.30); GLOMERULAR FILTRATION RATE > 60.0 (>49); GLUCOSE, FASTING 97 MG/DL (74-106); POTASSIUM SERUM 5.3 MMOL/L (3.5-5.1); SODIUM LEVEL 130 MMOL/L (136-145); TOTAL PROTEIN 7.5 G/DL (5.7-8.2)
== END ==
LOC: M RAD 13:30
PROVIDERS: ATTEND Nurse Practitioner Family
DX: Z01.818 Encounter for other preprocedural examination (principal)

== ENCOUNTER 2024-10-18 06:04 | Inpatient (IN) | payer MEDICARE ==
[2024-10-18] VITALS (47 sets, daily range): BP systolic 89–153; BP diastolic 50–73; TEMP 98.1–98.4; O2SAT 85–100
[~2024-10-18] VITALS: Ht 170.2 cm; Wt 92.0 kg
[~2024-10-18 06:04] MED LIST changes: +ATOR1TAB19 PO; +NEUR100C PO; +methylPREDNISolone 125MG 2ML VIAL IV SCH
[2024-10-18] MEDS ORDERED: NS (Normal Saline) 0.9% 1,000 ML IV SCH (06:15)
[2024-10-18] MEDS: ceFAZolin SOD 2 GM in IV 1 EA IV ONE (07:50)
[2024-10-18] MEDS ORDERED: ONDANSETRON 4MG 2ML VIAL As Ordered ONE (07:58)
[2024-10-18] MEDS ORDERED: fentaNYL 100 MCG/2 ML INJECTION As Ordered ONE (07:58)
[2024-10-18] MEDS ORDERED: propofoL 200 MG/20 ML VIAL As Ordered ONE (07:58)
[2024-10-18] MEDS ORDERED: dexmedeTOMIDine (4MCG/ML)200MCG/50ML BTL (PRECEDEX) As Ordered ONE (07:58)
[2024-10-18] MEDS ORDERED: HYDROmorphone HCL 2MG/ML 1ML VIAL As Ordered ONE (07:58)
[2024-10-18] MEDS ORDERED: MIDAZOLAM INJ 2MG/2ML VIAL As Ordered ONE (07:58)
[2024-10-18] MEDS ORDERED: LIDOCAINE 2% 100MG/5ML SDV (FOR ANES.) As Ordered ONE (07:58)
[2024-10-18] MEDS ORDERED: ROCURONIUM BROMIDE 50MG/5ML VIAL As Ordered ONE (07:58)
[2024-10-18] MEDS ORDERED: PHENYLephrine 500MCG 5ML (100MCG/ML) SYRINGE As Ordered ONE (08:02)
[2024-10-18] MEDS ORDERED: ACETAMINOPHEN 1000MG/100ML IV BAG As Ordered ONE (08:15)
[2024-10-18] MEDS: BUPivacaine LIPOSOME/PF 266MG 20ML VIAL (13.3MG/ML)(EXPAREL) As Ordered ONE (09:44)
[2024-10-18] MEDS: NS (Normal Saline) 0.9% 1,000 ML IV SCH (09:50)
[2024-10-18] MEDS: ONDANSETRON 4MG 2ML VIAL IV PRN (10:13)
[2024-10-18] MEDS: oxyCODONE 5MG TAB PO PRN (10:13)
[2024-10-18] MEDS: HYDROMORPHONE HCL 0.5 MG/ 0.5 ML SYRINGE IV PRN (10:13)
[2024-10-18] MEDS: HYDROCORTISONE 100MG/2ML VIAL IV ONE (10:30)
[2024-10-18] MEDS: fentaNYL 100 MCG/2 ML INJECTION IV PRN (10:40)
[2024-10-18] MEDS: hydrALAZINE 20MG/ML 1ML VIAL IV PRN (10:40)
[2024-10-18] MEDS: KETOROLAC 30 MG/ML 1ML VIAL IV ONE (10:55)
[2024-10-18] MEDS: diphenhydrAMINE 50MG/ML VIAL IV ONE (11:00)
[2024-10-18] MEDS ORDERED: methylPREDNISolone 40MG 1ML VIAL IV STA (11:16)
[2024-10-18] MEDS: diphenhydrAMINE 50MG/ML VIAL IV STA (11:18)
[2024-10-18] MEDS: RACEPINEPHrine 2.25% UD INHAL INH ONE (12:23)
[2024-10-18] MEDS: methylPREDNISolone 125MG 2ML VIAL IV ONE (12:35)
[2024-10-18] MEDS ORDERED: propofoL 1,000 MG in IV 1 EA IV SCH (13:05)
[2024-10-18] MEDS ORDERED: PROPOFOL 1,000 MG/100 ML VIAL As Ordered ONE (13:06)
[2024-10-18] MEDS: propofoL 1,000 MG in IV 1 EA IV SCH (13:15)
[2024-10-18] MEDS ORDERED: SUCCINYLCHOLINE 100MG/5ML SYRINGE As Ordered ONE (13:23)
[2024-10-18] MEDS ORDERED: MIDAZOLAM INJ 2MG/2ML VIAL IV PRN (13:55)
[2024-10-18] MEDS ORDERED: FENTANYL DRIP LOCK BOX KEY 1 EACH XX PRN (13:55)
[2024-10-18] MEDS ORDERED: fentaNYL CITRATE/NaCl 1,000 MCG in IV 1 EA IV SCH (14:15)
[2024-10-18] MEDS ORDERED: diphenhydrAMINE 50MG/ML VIAL IV SCH (16:00)
[2024-10-18 16:33] LABS: VENOUS BASE EXCESS -6.1 (-2.0-2.0); VENOUS HCO3 20.2 MMOL/L (23.0-27.0); VENOUS O2 SATURATION 98.7 % (60.0-80.0); VENOUS PARTIAL PRESSURE CO2 42.3 mmHg (38.0-50.0); VENOUS PH 7.296 UNITS (7.330-7.430); VENOUS STANDARD HCO3 19.6 MMOL/L; VENOUS TOTAL CO2 21.5 MMOL/L (24.0-28.0)
[2024-10-18 16:42] LABS: HEMATOCRIT 41.4 % (42.0-52.0); HEMOGLOBIN 14.1 g/dl (13.5-17.5); MEAN CORPUSCULAR HEMOGLOBIN 31.1 pg (27.0-33.0); MEAN CORPUSCULAR HGB CONC 34.1 g/dl (32.0-36.5); MEAN CORPUSCULAR VOLUME 91.4 fl (80.0-96.0); PLATELET COUNT, AUTOMATED 226 10^3/uL (150-450); RED BLOOD COUNT 4.53 10^6/uL (4.30-6.10); WHITE BLOOD COUNT 10.1 10^3/uL (4.0-10.0)
[2024-10-18] MEDS: HEPARIN SOD (PORCINE) 5000UNITS/ML 1ML VIAL/SYRINGE SC SCH (16:43)
[2024-10-18 17:06] LABS: MAGNESIUM LEVEL 1.7 MG/DL (1.8-2.4)
[2024-10-18 17:18] LABS: ALBUMIN 3.1 G/DL (3.2-5.2); ALKALINE PHOSPHATASE 88 U/L (40-129); ALT/SGPT 19 U/L (7.0-40); AST/SGOT 28 U/L (<34); BILIRUBIN,TOTAL 0.4 MG/DL (0.3-1.2); BLOOD UREA NITROGEN 21 MG/DL (9-23); CALCIUM LEVEL 7.9 MG/DL (8.3-10.6); CARBON DIOXIDE LEVEL 22 MMOL/L (20-31); CHLORIDE LEVEL 99 MMOL/L (98-107); CREATININE FOR GFR 0.99 MG/DL (0.70-1.30); GLOMERULAR FILTRATION RATE > 60.0 (>49); GLUCOSE, FASTING 110 MG/DL (74-106); POTASSIUM SERUM 6.7 MMOL/L (3.5-5.1); SODIUM LEVEL 129 MMOL/L (136-145); TOTAL PROTEIN 6.4 G/DL (5.7-8.2)
[2024-10-18] MEDS: DEXTROSE 50% 50ML SYRINGE IV STA (17:57)
[2024-10-18] MEDS: HumuLIN R (REGULAR) INSULIN (NovoLIN R) **100U/ML** PER UNIT IV STA (17:58)
[2024-10-18] MEDS: MAG SULF 1GM/100ML (MAG RUN) 1 GM in IV 1 EA IV ONE (17:58)
[2024-10-18] MEDS: FUROSEMIDE 40MG/4ML VIAL IV ONE (17:58)
[2024-10-18] MEDS: CALCIUM GLUCONATE 1,000 MG in DEXTROSE 5% (D5W) MINI-BAG PLU 100 ML IV ONE (17:59)
[2024-10-18] MEDS: NS 500 ML IV ONE ×2 (17:59→19:09)
[2024-10-18] MEDS: diphenhydrAMINE 50MG/ML VIAL IV SCH (19:09)
[2024-10-18 21:55] LABS: BLOOD UREA NITROGEN 21 MG/DL (9-23); CALCIUM LEVEL 7.7 MG/DL (8.3-10.6); CARBON DIOXIDE LEVEL 23 MMOL/L (20-31); CHLORIDE LEVEL 96 MMOL/L (98-107); CREATININE FOR GFR 0.99 MG/DL (0.70-1.30); GLOMERULAR FILTRATION RATE > 60.0 (>49); GLUCOSE, FASTING 153 MG/DL (74-106); POTASSIUM SERUM 5.3 MMOL/L (3.5-5.1); SODIUM LEVEL 128 MMOL/L (136-145)
[2024-10-18] MEDS ORDERED: HEPARIN SOD (PORCINE) 5000UNITS/ML 1ML VIAL/SYRINGE IV PRN (23:00)
[2024-10-18] MEDS ORDERED: FUROSEMIDE 20MG/2ML VIAL IV ONE (23:05)
[2024-10-18] MEDS: HEPARIN SOD (PORCINE) 5000UNITS/ML 1ML VIAL/SYRINGE IV ONE (23:36)
[2024-10-18] MEDS: ASPIRIN 300 MG SUPP PR ONE (23:37)
[2024-10-18] MEDS: ATORVASTATIN 20 MG TAB PO SCH (23:40)
[2024-10-18] MEDS: PATIROMER SORBITEX CALCIUM 8.4 GM POWDER PACKET (VELTASSA) PO ONE (23:41)
[2024-10-19] VITALS (53 sets, daily range): BP systolic 106–148; BP diastolic 56–73; TEMP 97.4–98.8; O2SAT 92–98
[2024-10-19] MEDS: HEPARIN DRIP 25,000 UNITS in IV 1 EA IV SCH (00:01)
[2024-10-19] MEDS: methylPREDNISolone 125MG 2ML VIAL IV SCH (01:47)
[2024-10-19 06:21] LABS: BASO % 0.2 % (0.0-1.0); HEMATOCRIT 37.9 % (42.0-52.0); HEMOGLOBIN 12.9 g/dl (13.5-17.5); LYMPH # 0.5 10^3/uL (1.5-5.0); LYMPH % 4.1 % (24.0-44.0); MEAN CORPUSCULAR HEMOGLOBIN 31.2 pg (27.0-33.0); MEAN CORPUSCULAR VOLUME 91.5 fl (80.0-96.0); MONO # 0.5 10^3/uL (0.0-0.8); MONO % 4.1 % (2.0-8.0); NEUTROPHILS # 11.5 10^3/uL (1.5-8.5); NEUTROPHILS % 91.2 % (36.0-66.0); PLATELET COUNT, AUTOMATED 215 10^3/uL (150-450); RED BLOOD COUNT 4.14 10^6/uL (4.30-6.10); WHITE BLOOD COUNT 12.6 10^3/uL (4.0-10.0)
[2024-10-19 07:37] LABS: ALBUMIN 2.8 G/DL (3.2-5.2); ALKALINE PHOSPHATASE 77 U/L (40-129); ALT/SGPT 20 U/L (7.0-40); AST/SGOT 48 U/L (<34); BILIRUBIN,TOTAL 0.4 MG/DL (0.3-1.2); BLOOD UREA NITROGEN 23 MG/DL (9-23); CALCIUM LEVEL 8.3 MG/DL (8.3-10.6); CARBON DIOXIDE LEVEL 24 MMOL/L (20-31); CHLORIDE LEVEL 97 MMOL/L (98-107); CREATININE FOR GFR 0.96 MG/DL (0.70-1.30); GLOMERULAR FILTRATION RATE > 60.0 (>49); GLUCOSE, FASTING 141 MG/DL (74-106); SODIUM LEVEL 128 MMOL/L (136-145); TOTAL PROTEIN 5.9 G/DL (5.7-8.2)
[2024-10-19 08:35] LABS: INR 1.04; PROTHROMBIN TIME 13.9 SECONDS (12.5-14.5)
[2024-10-19 08:55] LABS: PARTIAL THROMBOPLASTIN TIME > 240.0 SECONDS (24.8-34.2)
[2024-10-19] MEDS: PANTOPRAZOLE 40MG VIAL IV SCH (09:29)
[2024-10-19] MEDS: D5W/LR 1,000 ML IV SCH (21:56)
[2024-10-20] VITALS (38 sets, daily range): BP systolic 116–147; BP diastolic 59–80; TEMP 97.9–98.2; O2SAT 91–96
[2024-10-20 05:28] LABS: BASO % 0.1 % (0.0-1.0); HEMATOCRIT 34.8 % (42.0-52.0); LYMPH # 0.3 10^3/uL (1.5-5.0); LYMPH % 2.6 % (24.0-44.0); MEAN CORPUSCULAR HEMOGLOBIN 31.3 pg (27.0-33.0); MEAN CORPUSCULAR HGB CONC 34.5 g/dl (32.0-36.5); MEAN CORPUSCULAR VOLUME 90.9 fl (80.0-96.0); MONO # 0.6 10^3/uL (0.0-0.8); MONO % 4.7 % (2.0-8.0); NEUTROPHILS # 10.9 10^3/uL (1.5-8.5); NEUTROPHILS % 92.2 % (36.0-66.0); PLATELET COUNT, AUTOMATED 209 10^3/uL (150-450); RED BLOOD COUNT 3.83 10^6/uL (4.30-6.10); WHITE BLOOD COUNT 11.9 10^3/uL (4.0-10.0)
[2024-10-20 05:46] LABS: ALBUMIN 2.6 G/DL (3.2-5.2); ALKALINE PHOSPHATASE 65 U/L (40-129); ALT/SGPT 29 U/L (7.0-40); AST/SGOT 40 U/L (<34); BILIRUBIN,TOTAL 0.3 MG/DL (0.3-1.2); BLOOD UREA NITROGEN 23 MG/DL (9-23); CALCIUM LEVEL 7.8 MG/DL (8.3-10.6); CARBON DIOXIDE LEVEL 25 MMOL/L (20-31); CHLORIDE LEVEL 98 MMOL/L (98-107); CREATININE FOR GFR 0.92 MG/DL (0.70-1.30); GLOMERULAR FILTRATION RATE > 60.0 (>49); GLUCOSE, FASTING 186 MG/DL (74-106); POTASSIUM SERUM 4.6 MMOL/L (3.5-5.1); SODIUM LEVEL 128 MMOL/L (136-145); TOTAL PROTEIN 5.9 G/DL (5.7-8.2)
[2024-10-20] MEDS: ASPIRIN 325 MG TAB NG STA (09:24)
[2024-10-20] MEDS: PANTOPRAZOLE 40MG VIAL IV SCH (09:24)
[2024-10-20] MEDS: propofoL 1,000 MG in IV 1 EA IV SCH (10:42)
[2024-10-20] MEDS: LR 1,000 ML IV SCH (14:48)
[2024-10-20] MEDS: LR 1,000 ML IV ONE (16:28)
[2024-10-20] MEDS: HEPARIN SOD (PORCINE) 5000UNITS/ML 1ML VIAL/SYRINGE SQ SCH (20:03)
[2024-10-21] VITALS (40 sets, daily range): BP systolic 132–169; BP diastolic 64–86; TEMP 97.3–99.3; O2SAT 92–97
[2024-10-21 05:02] LABS: EOS % 0.3 % (0.0-3.0); HEMATOCRIT 35.7 % (42.0-52.0); HEMOGLOBIN 12.3 g/dl (13.5-17.5); LYMPH # 0.4 10^3/uL (1.5-5.0); LYMPH % 3.9 % (24.0-44.0); MEAN CORPUSCULAR HEMOGLOBIN 31.5 pg (27.0-33.0); MEAN CORPUSCULAR HGB CONC 34.5 g/dl (32.0-36.5); MEAN CORPUSCULAR VOLUME 91.5 fl (80.0-96.0); MONO # 0.6 10^3/uL (0.0-0.8); MONO % 6.3 % (2.0-8.0); NEUTROPHILS # 8.6 10^3/uL (1.5-8.5); PLATELET COUNT, AUTOMATED 196 10^3/uL (150-450); WHITE BLOOD COUNT 9.7 10^3/uL (4.0-10.0)
[2024-10-21 05:21] LABS: ALBUMIN 2.7 G/DL (3.2-5.2); ALKALINE PHOSPHATASE 66 U/L (40-129); ALT/SGPT 33 U/L (7.0-40); AST/SGOT 33 U/L (<34); BILIRUBIN,TOTAL 0.3 MG/DL (0.3-1.2); BLOOD UREA NITROGEN 20 MG/DL (9-23); CALCIUM LEVEL 7.9 MG/DL (8.3-10.6); CARBON DIOXIDE LEVEL 25 MMOL/L (20-31); CHLORIDE LEVEL 101 MMOL/L (98-107); CREATININE FOR GFR 0.87 MG/DL (0.70-1.30); GLOMERULAR FILTRATION RATE > 60.0 (>49); GLUCOSE, FASTING 132 MG/DL (74-106); MAGNESIUM LEVEL 2.2 MG/DL (1.8-2.4); POTASSIUM SERUM 4.6 MMOL/L (3.5-5.1); SODIUM LEVEL 131 MMOL/L (136-145); TOTAL PROTEIN 5.9 G/DL (5.7-8.2)
[2024-10-21] MEDS: ATORVASTATIN 20 MG TAB PO SCH (21:12)
[2024-10-21] MEDS: METOPROLOL SUCC *XL* 25MG TAB (TopROL *XL*) PO SCH (21:12)
[2024-10-21] MEDS: ACETAMINOPHEN *IV* 500 MG in IV 1 EA IV ONE (22:14)
[2024-10-22 04:31] VITALS: BP 131/65; TEMP 97.6; O2SAT 92
[2024-10-22] MEDS: ALBUTEROL SULFATE 2.5MG/0.5ML INH NEB SOLN NEB PRN (05:58)
[2024-10-22 07:47] VITALS: BP 135/63; O2SAT 92
[2024-10-22 08:00] VITALS: O2SAT 91
[2024-10-22] MEDS: ASPIRIN 81MG ENTERIC TABLET PO SCH (08:03)
[2024-10-22 08:08] LABS: BLOOD UREA NITROGEN 19 MG/DL (9-23); CALCIUM LEVEL 7.9 MG/DL (8.3-10.6); CARBON DIOXIDE LEVEL 28 MMOL/L (20-31); CHLORIDE LEVEL 102 MMOL/L (98-107); CHOLESTEROL LEVEL 142 MG/DL (<200); CHOLESTEROL RISK RATIO 2.35 (<5); CREATININE FOR GFR 0.79 MG/DL (0.70-1.30); GLOMERULAR FILTRATION RATE > 60.0 (>49); GLUCOSE, FASTING 126 MG/DL (74-106); HDL CHOLESTEROL 60.3 MG/DL (>40); LDL CHOLESTEROL 60.9 MG/DL (<100); NON-HDL-C 81.7 MG/DL; POTASSIUM SERUM 4.3 MMOL/L (3.5-5.1); SODIUM LEVEL 136 MMOL/L (136-145); TRIGLYCERIDES LEVEL 104 MG/DL (<150)
[2024-10-22 08:33] VITALS: TEMP 98.1
[2024-10-22 09:45] VITALS: O2SAT 94
[2024-10-22 12:33] VITALS: BP 135/64; TEMP 98.4; O2SAT 91
[2024-10-22] MEDS ORDERED: PRED10TA2 PO (12:58)
[2024-10-22] MEDS ORDERED: TOPR25TA PO (12:58)
[2024-10-22] MEDS ORDERED: ASPI81TAEC PO (12:58)
[2024-10-22] MEDS ORDERED: EPINEPHrine 1MG/10ML SYRINGE 1.5IN ONE (13:44)
== END 2024-10-22 13:45 | disposition home or self-care (01) | DRG 908 ==
LOC: M SDC 06:04 → M ICU 13:51 → M PCU 10-21 16:06
PROVIDERS: ADMIT Internal Medicine Pulmonary Disease; ATTEND Internal Medicine
PROC: 5A1945Z Respiratory Ventilation, 24-96 Consecutive Hours (ICD-10-PCS; 2024-10-18)
PROC: 0BH17EZ Insertion of Endotracheal Airway into Trachea, Via Natural or Artificial Opening (ICD-10-PCS; 2024-10-18)
PROC: 0WUF4JZ Supplement Abdominal Wall with Synthetic Substitute, Percutaneous Endoscopic Approach (ICD-10-PCS; principal; 2024-10-18 07:30)
PROC: B246ZZZ Ultrasonography of Right and Left Heart (ICD-10-PCS; 2024-10-19)
DX: T78.3XXA Angioneurotic edema, initial encounter (principal); I47.20 Ventricular tachycardia, unspecified; E87.1 Hypo-osmolality and hyponatremia; I24.89 Other forms of acute ischemic heart disease; I10 Essential (primary) hypertension; J44.9 Chronic obstructive pulmonary disease, unspecified; D64.9 Anemia, unspecified; K43.9 Ventral hernia without obstruction or gangrene; K74.60 Unspecified cirrhosis of liver; F17.200 Nicotine dependence, unspecified, uncomplicated; F10.20 Alcohol dependence, uncomplicated; Z79.899 Other long term (current) drug therapy; K21.9 Gastro-esophageal reflux disease without esophagitis; K76.0 Fatty (change of) liver, not elsewhere classified

== ENCOUNTER → 2025-04-07 | Outpatient (CLI) | payer MEDICARE ==
[~2025-04-07] MED LIST changes: +ASPI81TAEC PO; +PRED10TA2 PO; +TOPR25TA PO; -methylPREDNISolone 125MG 2ML VIAL IV SCH
== END ==
LOC: M PLAIMG 13:31
PROVIDERS: ATTEND Internal Medicine Cardiovascular Disease
DX: I50.32 Chronic diastolic (congestive) heart failure (principal); I27.81 Cor pulmonale (chronic); R01.1 Cardiac murmur, unspecified; I08.1 Rheumatic disorders of both mitral and tricuspid valves

== ENCOUNTER → 2025-04-12 | Outpatient (CLI) | payer MEDICARE | LOC: M SLEEP HO 03-24 11:17 | PROVIDERS: ATTEND Internal Medicine Cardiovascular Disease | DX: G47.33 Obstructive sleep apnea (adult) (pediatric) (principal); I27.81 Cor pulmonale (chronic) ==

== ENCOUNTER → 2025-05-25 | Outpatient (CLI) | payer MEDICARE | LOC: M RAD 16:41 | PROVIDERS: ATTEND Internal Medicine Critical Care Medicine | DX: F17.218 Nicotine dependence, cigarettes, with other nicotine-induced disorders (principal) ==